=== PATIENT | female | born 1985 | race Caucasian/White ===

== ENCOUNTER → 2020-01-27 15:02 | Outpatient (CLI) | payer OTHER, SELFPAY ==
--- NOTE | ~2020-01-27 | XR_ITS ---
EXAMINATION: XR knee LT min 4V DATE: 01/27/2020 15:30 INDICATION: Left knee injury. TECHNIQUE: 4 views of left knee were obtained. COMPARISON: Left knee radiographs 10/18/2013 FINDINGS: Bone alignment is normal. No fracture. There is mild osteoarthritis of lateral compartment characterized by a tiny marginal osteophyte. There is a small left knee joint effusion. IMPRESSION: 1. Mild left knee osteoarthritis. 2. Small left knee joint effusion. Reviewed, dictated and finalized at location A.
== END ==
PROVIDERS: Visit Provider Physician Assistant
DX: S89.92XA Unspecified injury of left lower leg, initial encounter (principal); X58.XXXA Exposure to other specified factors, initial encounter; M17.12 Unilateral primary osteoarthritis, left knee; M25.462 Effusion, left knee
CPT/HCPCS: 73564

== ENCOUNTER → 2020-02-03 15:47 | Outpatient (CLI) | payer OTHER, SELFPAY ==
--- NOTE | ~2020-02-03 | MR_ITS ---
EXAMINATION: MR knee LT wo con DATE: 02/03/2020 16:18 INDICATION: Left knee pain post injury TECHNIQUE: Magnetic resonance imaging (MRI) of the left knee was performed without intravenous contra st. Sequences included coronal PD-weighted FSE, coronal PD-weighted FS FSE, sagittal T2-weighted FSE , sagittal PD-weighted FS FSE and axial PD weighted fat saturated FSE. COMPARISON: None. FINDINGS: Medial compartment: Duplex medial meniscal tear including a likely paired beak configuration tear plane at the posterior horn and a longitudinal oblique tear plane extending to the inferior articular surface at the periphe ral third of the medial meniscal body and posterior horn. Articular cartilage is normal. Lateral compartment: Lateral meniscus is normal. Articular cartilage is normal. Patellofemoral compartment: Articular cartilage is normal. Ligaments and tendons: Posterior cruciate ligament is normal. The anterior cruciate ligament is no longer visualized consist ent with interval tear which is likely chronic given the lack of significant edema or evident residua l ligament tissue. The medial collateral ligament and fibular collateral ligament complex are normal. The extensor mechanism is normal. The visualized medial and lateral hamstring tendons as well as the iliotibial band are normal. Fluid: Minimal left knee joint effusion at the suprapatellar pouch. No loose osteochondral bodies identified . Osseous/other: Normal marrow signal. No fracture or pathologic marrow replacing process. IMPRESSION: 1. Complete tear of the anterior cruciate ligament which is likely chronic given the lack of signific ant edema at the intercondylar notch or evident residual torn ligament tissue. 2. Complex medial meniscal tear. Reviewed, dictated and finalized at location A. LOPMENT REP IMPRESSION: 1. Complete tear of the anterior cruciate ligament which is likely chronic give n the lack of significant edema at the intercondylar notch or evident residual torn ligament tissue. 2. Complex medial meniscal tear.
== END ==
PROVIDERS: PCP Physician Assistant; Visit Provider Physician Assistant
DX: S83.512A Sprain of anterior cruciate ligament of left knee, initial encounter (principal); S83.232A Complex tear of medial meniscus, current injury, left knee, initial encounter
CPT/HCPCS: 73721

== ENCOUNTER 2020-09-17 14:38 | Emergency (ER) | payer OTHER, SELFPAY ==
--- NOTE | ~2020-09-17 | US_ITS ---
EXAMINATION: US OB <= 14 weeks fetus DATE: 09/17/2020 16:52 INDICATION: First trimester vaginal bleeding. TECHNIQUE: Real-time transabdominal and transvaginal pelvic ultrasound was performed. COMPARISON: None. FINDINGS: TRANSABDOMINAL ULTRASOUND: The uterus measures 8.7 x 6.0 x 6.3 cm. TRANSVAGINAL ULTRASOUND: There is a cyst in the endometrial complex with mean diameter of 2.3 cm that is likely a gestational sac. No yolk sac is identified. The crown rump length measures 5 mm, which correlates with an estimated gestational age of 6 weeks and 3 day(s) +/- 4 days. heart mo tion is not identified by M-mode Doppler. The right ovary measures 2.7 x 2.1 x 2.0 cm. The left ovary measures 2.4 x 1.6 x 1.3 cm. There is no free fluid in the pelvis. IMPRESSION: 1. Single intrauterine gestation with estimated date of delivery of 05/11/2021. Lack of demonstrable heart motion is not reassuring at this size but may rarely be normal. Serial beta-hCGs are adan mmended. Reviewed, dictated and finalized at location A. IMPRESSION: 1. Single intrauterine gestation with estimated date of delivery of 05/11/2021. Lack of demonstrable heart motion is not reassuring at this size but may rarely be normal. Serial beta-hCGs are recommended.
[2020-09-17 14:40] VITALS: BP 147/78; PULSE 114; RESP 20; TEMP 36.7; O2SAT 100
[2020-09-17 15:00] LABS: Basophils Absolute Auto 0.1 K/mm3 (0.0-0.1); Basophils Percent Auto 0.5 % (0.2-1.2); Eosinophils Absolute Auto 0.2 K/mm3 (0-0.3); Eosinophils Percent Auto 2.1 % (0-4.4); Hemoglobin 13.9 g/dL (12.0-15.0); Immature Granulocyte Absolute 0.03 K/mm3 (0.00-0.031); Immature Granulocyte Percent A 0.3 % (0-0.5); Lymphocytes Absolute Auto 3.24 K/mm3 (0.9-3.2); Lymphocytes Percent Auto 32.4 % (18.3-44.2); Mean Corpuscular HGB Conc 32.3 g/dl (32-36); Mean Corpuscular Hemoglobin 30.5 pg (26-34); Mean Corpuscular Volume 94.5 fl (80-100); Mean Platelet Volume 10.1 fl (7.4-10.4); Monocytes Absolute Auto 0.7 K/mm3 (0.1-0.6); Monocytes Percent Auto 6.9 % (2.6-8.5); Neutrophils Absolute Auto 5.8 K/mm3 (1.3-6.7); Neutrophils Percent Auto 57.8 % (45.5-73.1); Platelet Count Result 302 k/mm3 (150-375); Red Blood Count 4.55 M/mm3 (4.2-5.4); Red Cell Distribution Width 13.1 % (11.5-14.5)
--- NOTE | 2020-09-17 16:10 | ED.PREGNANCY ---
HPI - General Chief complaint: Vaginal Bleeding Stated complaint: 10 weeks preg, vag bleed Time Seen by Provider: 09/17/20 15:36 Source: patient Mode of arrival: ambulatory Limitations: no limitations History of Present Illness HPI Narrative: This is a 35-year-old , about 11 weeks by LMP that presents to the emergency department for vaginal bleeding. Reports 2 days ago she noted some very light spotting. Reports today after using the restroom she noted some bright red blood. She has not had ultrasound yet this . Her OB is Dr. Perez. Denies pelvic cramping. Related Data Allergies Allergy/AdvReac Type Severity Reaction Status Date / Time No Known Allergies Allergy Unverified 02/15/17 17:39 Review of Systems Review of Systems: Narrative: CONSTITUTIONAL: Denies fever GASTROINTESTINAL: Denies pelvic pain, nausea, vomiting All systems reviewed & are unremarkable except as noted in HPI and below PMFSH Past Medical History Medical History (Updated 09/17/20 @ 18:34 by Leticia Morelos PA-C) History of hypothyroidism Family History Family History (Updated 11/27/14 @ 10:23 by DOCTOR UNKNOWN) Other Acute myocardial infarction Diabetes mellitus Family history of alcoholism Social History Social History Smoking status: Never smoker Gender identity (if verbalized by the patient): Female Exam Narrative: Exam Narrative: GENERAL: Well-appearing, well-nourished, and in no acute distress. HEAD: Normocephalic, atraumatic. EYES: EOMI. CHEST: Clear to auscultation. No respiratory distress. No wheezes rales or rhonchi HEART: Regular rate and rhythm. No murmur heard. Normal peripheral pulses. ABDOMEN: Soft, nontender, nondistended, normal active bowel sounds. EXTREMITIES: Normal range of motion. No edema. SKIN: Warm, dry, no rash. NEURO: No focal deficits. Alert and oriented x3. PSYCH: Normal mood and affect PELVIC: Small amount of dark red blood in the vaginal vault, cervix closed Course Consultations Consultation #1: Spoke with Dr. Perez about patient and work-up. Would like patient to call tomorrow for follow-up appointment Date: 09/17/20 Time: 18:32 Vital Signs Vital signs: Vital Signs Temperature 98.0 F 09/17/20 14:40 Pulse Rate 114 H 09/17/20 14:40 Respiratory Rate 20 09/17/20 14:40 Blood Pressure 147/78 H 09/17/20 14:40 Pulse Oximetry 100 09/17/20 14:40 Temperature 98.0 F 09/17/20 14:40 Pulse Rate 114 H 09/17/20 14:40 Respiratory Rate 20 09/17/20 14:40 Blood Pressure 147/78 H 09/17/20 14:40 Pulse Oximetry 100 09/17/20 14:40 MDM - OB/Uterine Contractions MDM Narrative Medical decision making narrative: Patient presents to the emergency department for vaginal bleeding. 11 weeks by LMP. Her vitals are stable. Hemoglobin is 13.9. Small amount of bleeding noted on pelvic exam. Patient is B+. Her quantitative beta-hCG is 8525. Obstetrics ultrasound shows single intrauterine gestation. No heart motion is noted. Serial beta hCG recommended. Patient and family updated on case findings. Spoke with Dr. Perez about patient and work-up will follow-up in clinic. Patient is stable and felt appropriate for further outpatient evaluation. She was given warnings to return to the ER Lab Data Attestation: I reviewed the patient's lab results. Result diagrams: 09/17/20 14:46 Labs: Lab Results 09/17/20 09/17/20 09/17/20 Range/Units 14:46 14:46 14:46 WBC 10.0 (4.5-10.0) K/mm3 RBC 4.55 (4.2-5.4) M/mm3 Hgb 13.9 (12.0-15.0) g/dL Hct 43.0 (37.0-47.0) % MCV 94.5 (80-100) fl MCH 30.5 (26-34) pg MCHC 32.3 (32-36) g/dl RDW 13.1 (11.5-14.5) % Plt Count 302 (150-375) k/mm3 MPV 10.1 (7.4-10.4) fl Immature Gran % (Auto) 0.3 (0-0.5) % Neut % (Auto) 57.8 (45.5-73.1) % Lymph % (Auto) 32.4 (18.3-44.2) % Camp % (Auto) 6.9 (2.6-8.5) % Eos % (Auto) 2.1 (0-4.4) % Baso % (Auto) 0.5
== END 2020-09-17 18:43 | disposition home or self-care (01) ==
PROVIDERS: Emergency Medicine; Emergency Provider Emergency Medicine; PCP Physician Assistant
DX: O20.9 Hemorrhage in early pregnancy, unspecified (principal); O99.281 Endocrine, nutritional and metabolic diseases complicating pregnancy, first trimester; E03.9 Hypothyroidism, unspecified; Z3A.01 Less than 8 weeks gestation of pregnancy
CPT/HCPCS: 36415; 76801; 84702; 85025; 85461; 99284

== ENCOUNTER 2021-09-28 15:02 | Emergency (ER) | payer OTHER, SELFPAY ==
[2021-09-28 15:04] VITALS: BP 141/72; PULSE 103; RESP 18; TEMP 37.2; O2SAT 99
--- NOTE | 2021-09-28 15:24 | ED.FEVER ---
HPI - Fever General Chief Complaint: Fever Stated Complaint: covid positive Time Seen by Provider: 09/28/21 15:10 History of Present Illness HPI Narrative: pt here with having cough nasal congestion and home covid test positive today has all vaccines and booster but fever over 100 today no other vaginal bleeding, consistant abd pain, nv//d/urine chagnes but is urinating a lot thought just b/c preg. high risk due to age and previous miscarriage will be transgferred at 8-9weeks to [facility] for rest of . just seeing fertility docs in [place] currently Related Data Allergies Allergy/AdvReac Type Severity Reaction Status Date / Time No Known Allergies Allergy Unverified 02/15/17 17:39 Review of Systems Constitutional: Comments: CONSTITUTIONAL: Denies, chills, or sweats. has fever EYES: Denies visual changes, redness, or discharge. ENT: Denies rhinorrhea, sore throat, or otalgia. has nasal congestion CARDIOVASCULAR: Denies chest pain, palpitations, or edema. RESPIRATORY: Denies dyspnea. has cougn GASTROINTESTINAL: Denies abdominal pain, nausea, vomiting, or diarrhea. GENITOURINARY: Denies dysuria or hematuria. SKIN: Denies rash or itching. MUSCULOSKELETAL: Denies back pain, joint pain, or myalgia. NEUROLOGIC: Denies headache, numbness, or weakness. PSYCHIATRIC: Denies anxiety or depression. [facility] Past Medical History Medical History (Updated 09/28/21 @ 16:56 by Maru Blakely MD) History of hypothyroidism Family History Family History (Updated 11/27/14 @ 10:23 by DOCTOR UNKNOWN) Other Acute myocardial infarction Diabetes mellitus Family history of alcoholism Social History Social History Smoking status: Never smoker Gender identity (if verbalized by the patient): Female Exam Const: Other: APPEARANCE: Well appearing, no pain in distress, well-nourished. Head normocephalic atraumtaic. EYES: PERRLA/EOMI, conjunctivae very clear. NOSE: Normal no drainage EARS:TMS clear Brittney Carrillo, with good light reflex. THROAT: Pharynx clear, no exudate. NECK: Supple. No adenopathy, no masses. RESPIRATORY: Airway patent, repsirations nonlabored. Clear to auscultation bilaterally, no rales, rhonchi, wheezing. CARDIOVASCULAR: Regular rate and rhythm without murmurs rubs or gallops. ABDOMINAL: Soft, nontender, nondistended, no hepatosplenomegally MUSCULOSKELETAl: Moves all extremities. Strenght/ROM intact, No edema, No calf tenderness. NEURO: Alert. Cranial nerves II through XII intact. Good gait. Good coordination SKIN:: Warm, dry. Normal Color PSYCHIATRIC: Normal affect/mood, normal interaction with parents. Course Reevaluation(s) Reevaluation #1: explained given freq urination may just be preg but with fevers want to make sure not another source of infection and get an offical covid test pt fine with all of this then will call her ob for further care/meds given status no infusion availability here Consultations Consultation #1: calling Dr Michaela Johnson at 1604 Consultation #2: talked with Dr Danae Harper covering to Dr Johnson and says symptomatic treatment no iv infusion doens't really help except maybe new one but hasn't used also could do baby asa daily for placenta flow but have her check with her doc in [place] so pt updated on all of this and fine wiht this plan will d/c at 150 Vital Signs Vital signs: Vital Signs Temperature 37.2 C 09/28/21 15:04 Pulse Rate 103 H 09/28/21 15:04 Respiratory Rate 18 09/28/21 15:04 Blood Pressure 141/72 H 09/28/21 15:04 Pulse Oximetry 99 09/28/21 15:04 Oxygen Delivery Room Air 09/28/21 15:04 Temperature 37.2 C 09/28/21 15:04 Pulse Rate 103 H 09/28/21 15:04 Respiratory Rate 18 09/28/21 15:04 Blood Pressure 141/72 H 09/28/21 15:04 Pulse Oximetry 99 09/28/21 15:04 Oxygen Delivery Room Air 09/28/21 15:04 MDM - Fever Lab Data Labs: Lab Results 09/28/21 09/28/21 Range/Units 15:19 15:40 Urine Color
[2021-09-28 15:48] LABS: Appearance Urine Clear (Clear); Bilirubin Urine Negative (Negative); Blood Urine Negative (Negative); Color Urine Yellow (Yellow); Glucose Urine UA Negative (Negative); Ketones Urine Negative (Negative); Leukocyte Esterase Ur Trace LEU/UL (Negative); Nitrate Urine Negative (Negative); Protein Urine Negative (Negative); Specific Grav Ur 1.015 (1.001-1.035); pH Urine 8.5 (5.0-9.0)
[2021-09-28 15:59] LABS: Bacteria Urine Trace /hpf; RBC Urine 0-2 /hpf (0-2); Squamous Epithelial Cell Urine Few /hpf (Few)
[2021-09-28 16:00] LABS: Add Urine Microscopic? YES
[2021-09-28 16:01] LABS: Influenza A QL RT-PCR Negative (Negative); Influenza B QL RT-PCR Negative (Negative); SARS-CoV-2 RNA PCR Positive
== END 2021-09-28 17:04 | disposition home or self-care (01) ==
PROVIDERS: Emergency Provider Emergency Medicine; PCP Physician Assistant
DX: O98.511 Other viral diseases complicating pregnancy, first trimester (principal); U07.1 COVID-19; O09.521 Supervision of elderly multigravida, first trimester; O99.281 Endocrine, nutritional and metabolic diseases complicating pregnancy, first trimester; E03.9 Hypothyroidism, unspecified; Z3A.01 Less than 8 weeks gestation of pregnancy
CPT/HCPCS: 81001; 87502; 99283; C9803; U0003; U0005

== ENCOUNTER → 2023-02-11 12:10 | Outpatient (CLI) | payer OTHER, SELFPAY ==
--- NOTE | ~2023-02-11 | CT_ITS ---
Non-contrast CT scan of the Abdomen and Pelvis Clinical indication: Hematuria Technique: 2.5 mm axial scans were obtained through the abdomen and pelvis without intravenous or or al contrast. Dose reduction technique was used on this scan by utilizing automated exposure control a nd iterative reconstruction technique. The dose-length product (DLP) was 430.12 mGy-cm. Findings: Images through the lung bases reveal no abnormalities. There is no evidence of renal or ureteral calculi. The kidneys and the ureters are nondilated. The liver, spleen, pancreas, gallbladder, and adrenals appear normal. There is no aortic aneurysm. There is no evidence of bowel obstruction. Images through the pelvis were performed. There is no evidence of ascites or lymphadenopathy. No adne xal mass evident. No ascites. Urinary bladder unremarkable. Impression: No significant abnormality seen. No etiology for hematuria identified. Reviewed, dictated and finalized at [facility]. ET BRAIDER Impression: No significant abnormality seen. No etiology for hematuria identified.
== END ==
PROVIDERS: PCP Physician Assistant; Visit Provider Physician Assistant
DX: R31.9 Hematuria, unspecified (principal)
CPT/HCPCS: 74176

== ENCOUNTER 2023-02-14 16:13 | Emergency (ER) | payer OTHER, SELFPAY ==
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
[2023-02-14 16:22] VITALS: BP 122/94; PULSE 71; RESP 16; TEMP 36.5; O2SAT 100
== END 2023-02-14 16:40 | disposition home or self-care (01) ==
PROVIDERS: Emergency Provider Nurse Practitioner Family; PCP Physician Assistant
DX: Z04.1 Encounter for examination and observation following transport accident (principal); R51.9 Headache, unspecified; E03.9 Hypothyroidism, unspecified
CPT/HCPCS: 99212; 99213; G0463

== ENCOUNTER 2023-08-31 13:16 | Outpatient (CLI) | payer OTHER, SELFPAY ==
--- NOTE | ~2023-08-31 | US_ITS ---
Thyroid ultrasound. Clinical History: Hypothyroidism Findings: Real-time sonography of the thyroid gland was performed. The right lobe measures 4.3 x 0.9 x 1.0 cm. The left lobe measures 3.5 x 0.8 x 1.2 cm. The isthmus is 3 mm in AP diameter. No thyroid nodule or mass seen. Impression: Unremarkable exam. Reviewed, dictated and finalized at location . Impression: Unremarkable exam.
== END 2023-08-31 13:17 ==
LOC: GOSHIMG 13:18
PROVIDERS: PCP Physician Assistant; Visit Provider Physician Assistant
DX: E03.9 Hypothyroidism, unspecified (principal)
CPT/HCPCS: 76536

== ENCOUNTER 2024-04-25 15:46 | Outpatient (CLI) | payer OTHER, SELFPAY ==
--- NOTE | ~2024-04-25 | MR_ITS ---
EXAMINATION: MR knee LT wo con DATE: 04/25/2024 16:16 INDICATION: Rupture of the anterior cruciate ligament of the left knee TECHNIQUE: Magnetic resonance imaging (MRI) of the left knee was performed without intravenous contra st. Sequences included coronal PD-weighted FSE, coronal PD-weighted FS FSE, sagittal T2-weighted FSE , sagittal PD-weighted FS FSE and axial PD weighted fat saturated FSE. COMPARISON: None. FINDINGS: Medial compartment: Medial meniscus is normal. Articular cartilage is normal. Lateral compartment: Lateral meniscus is normal. Articular cartilage is normal. Patellofemoral compartment: Articular cartilage is normal. Ligaments and tendons: Complete tear of the anterior cruciate ligament. The medial collateral ligament and fibular collatera l ligament complex are normal. The extensor mechanism is normal. The visualized medial and lateral patterson mstring tendons as well as the iliotibial band are normal. Fluid: Physiologic amount of fluid in the joint space. No loose osteochondral bodies identified. Osseous/other: Normal marrow signal. No fracture or pathologic marrow replacing process. IMPRESSION: 1. Complete anterior cruciate ligament tear. 2. Remaining stabilizing ligaments of the knee sulci menisci and articular cartilage are normal. Reviewed, dictated and finalized at location B. CLEANER IMPRESSION: 1. Complete anterior cruciate ligament tear. 2. Remaining stabilizing ligaments of the knee sulci menisci and articular cart ilage are normal.
== END 2024-04-25 15:47 | disposition home or self-care (01) ==
PROVIDERS: PCP Physician Assistant; Visit Provider Physician Assistant
DX: S83.512A Sprain of anterior cruciate ligament of left knee, initial encounter (principal); S83.242A Other tear of medial meniscus, current injury, left knee, initial encounter; X58.XXXA Exposure to other specified factors, initial encounter
CPT/HCPCS: 73721

== ENCOUNTER 2025-02-05 17:01 | Emergency (ER) | payer OTHER, SELFPAY ==
--- NOTE | ~2025-02-05 | CT_ITS ---
EXAMINATION: CT brain wo con COMPARISON: None HISTORY: headache TECHNIQUE: Axial images were obtained through the brain without IV contrast. CT scan performed using dose optimization techniques including the following automated exposure control; adjustment of mA and/or kV; use of iterative reconstruction technique. Automatic exposure control was used to reduce radiation dose. Permanent radiation dose record is archived to PACS. FINDINGS: No acute infarct or parenchymal hemorrhage. No abnormal mass or mass effect. No midline shift. No extra-axial fluid collections. No hydrocephalus. . Mastoid air cells unremarkable. Severe right maxillary sinusitis, underlying polyp formation suspected No acute fracture. No significant facial or scalp soft tissue swelling evident. No radiopaque foreign body is seen. Impression: 1.No acute intracranial abnormality. Reviewed, dictated and finalized at location P. THERAPIST Impression: 1.No acute intracranial abnormality.
--- OUTSIDE RECORDS SUMMARY | 2025-02-05 16:30 | XMS_ITS | Encounter Summary ---
Author Organization [facility] Healthcare Address [address] [place] [address] Care Team Providers Care Pipeline Superintendent Division Name Role Phone Letty Garcia Primary [facility] Reason for Visit * Reason Comments Headache Continual headache f or the last 6 days.states that is mainly behind the L eye and eye brow, skin is sensitive to touch, No fever. Encounter Details Date Type Department Care Team (Latest Contact Info) Description 02/05/2025 4:30 PM BALLET MASTER/MISTRESS Office Visit [facility] at [address] [id number] Mica Chun NP [address] [place] [id number] Acute nonintractable headache, unspecified headache type (Primary Dx) Social History Tobacco Use Types Packs/Day Years Used Date Smoking Tobacco: Never Smokeless Tobacco: Never Alcohol Use Standard Drinks/Week Comments Never 0 (1 standard drink = 0.6 oz pur e alcohol) AUDIT-C Answer Date Recorded Q1: How often do you have a drink containing alcohol? Never 02/05/2025 Q2: How many drinks containi ng alcohol do you have on a typical day when you are drinking? Patient does not drink Q3: How often do you have si x or more drinks on one occasion? Never 02/05/2025 Comments Unknown Sex and Gender Information Value Date Recorded Sex Assigned at Not on file Legal Sex Female 12:38 AM BALLET MASTER/MISTRESS Gender Identity Female 09/27/2024 6:32 AM CDT Sexual Orientation Straight 09/27/2024 6: 32 AM CDT documented as of this encounter Last Filed Vital Signs Vital Sign Reading Time Taken Comments Blood Pressure 132/84 02/05/2025 4:26 PM BALLET MASTER/MISTRESS Pulse 88 02/05/2025 4:26 PM BALLET MASTER/MISTRESS Temperature 36.7 C (98 F) 02/05/2025 4:26 PM BALLET MASTER/MISTRESS Respiratory Rate - - Oxygen Saturation 100% 02/05/2025 4:26 PM BALLET MASTER/MISTRESS Inhaled Oxygen Concentration - - Weight 64.2 kg (141 lb 9.6 oz) 02/05/2025 4:26 P M BALLET MASTER/MISTRESS Height - - Body Mass Index 25.89 06/10/2024 3:02 PM CDT documented in this encounter Functional Status * BP Location Answer Date of Assessment Author Left arm 02/05/2025 4:26 PM Gene Siegel MA * AUDIT-C Score Answer Date of Assessment Author 0 02/05/2025 4:27 PM Gene Siegel MA * Alcohol Use Question Answer Date of Assessment Author Q1: How often do you have a drink containing alcohol? Never 02/05/2025 4:27 PM Leona Siegel MA Q2: How many drinks containing alcohol do you have on a typical day when you are drinking? Patient does not drink 02/05/2025 4:27 PM Leona Siegel MA Q3: How often do you have six or more drinks on one occasion? Never 02/05/2025 4:27 PM Leona Siegel MA * BP Location Answer Date of Assessment Author Left arm 02/05/2025 4:26 PM Gene Siegel MA documented as of this encounter Plan of Treatment Upcoming Encounters Date Type Department Care Team (Latest Contact Info) Description 02/09/2025 9:45 AM BALLET MASTER/MISTRESS Hospital Encounter [facility] Operating Room [address] [place] [address] Edward Doyle MD [address] [place] [address] [address] ACOSTA B [address] [address] 02/09/2025 9:45 AM BALLET MASTER/MISTRESS - 02/09/2025 12:15 PM BALLET MASTER/MISTRESS Surgery [facility] Operating Room [address] [place] [address] Edward Doyle MD [address] [place] [address] [address] ACOSTA B [address] [place] [address] Left knee arthroscopy, anterior cruciate ligament reconstruction--Art hroscopy equipment, Arthrex ACL tightrope, Arthrex extendo button back up, Arthrex records tech, meniscal repairs systems cart on hold, Arthrex graft board, c-arm, graftlink, Arthrex size 10 x 65-70, NMES and cooling unit Scheduled Procedures Name Priority Associated Diagnoses Date/Ti me ARTHROSCOPY KNEE - REPAIR/AUGMENTATION OR RECONSTRUCTION ANTERIOR CRUCIATE LIGAMENT Rupture of anterior cruciate ligament of left knee, initial encounter 02/09/2025 9:45 AM BALLET MASTER/MISTRESS documented as of this encounter Visit Diagnoses Diagnosis Left anterior cruciate ligament tear- Primary Acute nonintractable headache, unspecified headache type- Primary Rupture of anterior cruciate ligament of left knee, initial encounter documented in this encounter Care Teams Pipeline Superintendent Division Relationship Specialty Start Date End Date Letty Garcia PA PCP - General Physician E Commerce Analyst 05/22/23 documented as of this encounter
[2025-02-05 17:03] VITALS: BP 138/84; PULSE 90; RESP 18; TEMP 36.6; O2SAT 98
--- OUTSIDE RECORDS SUMMARY | 2025-02-05 17:03 | XMS_ITS | Data Portability ---
Author Organization [facility] FITZJewel Address [address] [facility] [place] [address] Care Team Providers Care Health And Wellness Coach Name Role Phone CIARA BURROUGHS Primary Care Provider Unavailab le Assessment No assessment recorded. Plan of Treatment Reminders Order Date Submit Date Provider Last Modified By Organization Details Last Modified Time Details Appointments ANY 2024 01:45P M ANGIE Madison Not available Not available Not available ANY 2025 03:15P Caryn Samuels MD Not available Not available Not available Lab lipid panel, serum 2023 024 [facility], [address], [address], 09/01/2023 18:36:19 vitamin B12 + folate, serum or blood 2023 024 [facility], 102 [facility] [address], [address], 09/01/2023 18:36:21 CBC w/ auto diff 2023 024 [facility], 102 [facility], [facility], [place], [address], 09/01/2023 18:36:22 CMP, serum or plasma 2023 024 [facility], 102 [facility], [facility], [place], [address], 09/01/2023 18:36:20 urinalysi s complete, reflex culture 2023 024 [facility], 102 [facility], [facility], [place], [address], 09/01/2023 18:36:21 HbA1c (hemoglob in A1c), blood 2023 024 [facility], 102 [facility], [facility], [place], [address], 09/01/2023 18:36:22 TSH + free T4, serum 2023 024 [facility], 102 [facility], [facility], [place], [address], 09/01/2023 18:36:19 T3, free, serum or plasma 2023 024 [facility], 102 [facility], [facility], [place], [address], 09/01/2023 18:36:24 thyroid peroxidas e (tpo) Ab, serum 2023 024 [facility], [address] [place] [address], [facility], [place], [address], 09/01/2023 18:36:23 thyroglob ulin Ab, serum 2023 024 [facility], [address] [place] [address], [facility] [address], [place], [address], 09/01/2023 18:36:24 Referral None recorded. Procedures None recorded. Surgeries None recorded. Imaging US, thyroid 2023 024 [facility], [address] [facility] [address], [place], [address], 09/24/2023 15:33:31 Medication Orders albuterol sulfate HFA 90 mcg/actua tion aerosol inhaler 2023 024 [facility] #[id number], [address] [facility], [place], [id number], 03/15/2024 14:16:41 benzonata te 200 mg capsule 2023 025 [facility] #[id number], [address] [place] [address], [id number], 08/06/2024 20:35:04 nystatin 100,000 unit/gram topical powder [address] [facility] #[id number], [address] [place] [address], [id number], 01/08/2024 13:57:33 fluticaso ne propionat e 50 mcg/actua tion nasal spray,becca pension 2023 024 [facility] #97802, [address] [place] [address], [id number], 07/23/2023 00:24:23 hydrocodo ne 10 mg-chlorp heniramin e 8 mg/5 mL oral susp extend.re l 12hr [address] [facility] #46878, [address] [place] [address], [id number], 01/08/2024 13:57:25 Zithromax Z-Luca 250 mg tablet [address] #[address]68, [address] [place] [address], [id number], 08/06/2024 20:34:55 Patient TargetsNo targets recorded. Patient Instructions Encounter Date Encounter Id Patient Instructions Last Modified By Organization Details Last Modified Time 01/08/2024 [id number] A healthy lifestyle: care instructions [email or web address] Not available 01/08/2024 16:30:15 Reason for Referral None Reported. Results Created Date Observation Date Name Description Value Unit Range Abnormal Flag Note LastModifiedBy Organization Detail LastModifiedTime 08/31/19 24 09/01/2023 LIPID PANEL W/ CHOL/ HDL RATIO cholesterol, total 157 mg/dL 100-19 9 Not Available [facility] ([facility]) [address] [place], [address], 09/01/2023 18:36:19 08/31/19 24 09/01/2023 LIPID PANEL W/ CHOL/ HDL RATIO triglyceride s 242 mg/dL 0-149 above high normal Not Available [facility] ([facility]) [address] [facility], [place], [address], 09/01/2023 18:36:19 08/31/19 24 09/01/2023 LIPID PANEL W/ CHOL/ HDL RATIO HDL cholesterol 36 mg/dL >39 below low normal Not Available [facility] ([facility]) [address] [facility], [place], [address], 09/01/2023 18:36:19 08/31/19 24 09/01/2023 LIPID PANEL W/ CHOL/ HDL RATIO VLDL cholesterol sonali 40 mg/dL 5-40 Not Available [facility] ([facility]) [address] [place], [address], 09/01/2023 18:36:19 08/31/19 24 09/01/2023 LIPID PANEL W/ CHOL/ HDL RATIO LDL chol calc ([facility]) 81 mg/dL 0-99 Not Available [facility] ([facility]) [address] [place], [address], 09/01/2023 18:36:19 08/31/19 24 09/01/2023 LIPID PANEL W/ CHOL/ HDL RATIO T. chol/HDL ratio 4.4 ratio 0.0-4. 4 T. Chol/ HDL Ratio Men Women 1/2 Avg.R isk 3.4 3.3 Avg.R isk 5.0 4.4 2X Avg.R isk 9.6 7.1 3X Avg.R isk 23.4 11.0 Not Available [facility] ([facility]) [address] [facility] [place], [address], 09/01/2023 18:36:19 08/31/19 24 09/01/2023 TSH+F REE T4 TSH 0.060 uIU/m L 0.450- 4.500 below low normal Not Available [facility] ([facility]) [address] [facility] [place], [address], 09/01/2023 18:36:19 08/31/19 24 09/01/2023 TSH+F REE T4 T4,free(dire ct) 1.59 NG/dL 0.82-1 .77 Not Available [facility] ([facility]) [address] [facility] [place], [address], 09/01/2023 18:36:19 08/31/19 24 09/01/2023 COMP. METAB OLIC PANEL (14) glucose 85 mg/dL 70-99 Not Available [facility] ([facility]) [address] [place], [address], 09/01/2023 18:36:20 08/31/19 24 09/01/2023 COMP. METAB OLIC PANEL (14) BUN 16 mg/dL 6-24 Not Available [facility] ([facility]) [address] [place], [address], 09/01/2023 18:36:20 08/31/19 24 09/01/2023 COMP. METAB OLIC PANEL (14) creatinine 0.70 mg/dL 0.57-1 .00 Not Available [facility] ([facility]) [address] [facility] [place], [address], 09/01/2023 18:36:20 08/31/19 24 09/01/2023 COMP. METAB OLIC PANEL (14) eGFR 112 mL/mi n/1.7 3 >59 Not Available [facility] ([facility]) [address] [place], [address], 09/01/2023 18:36:20 08/31/19 24 09/01/2023 COMP. METAB OLIC PANEL (14) BUN/creatini ne ratio 23 9-23 Not Available [facility] ([facility]) [address] [facility], [place], [address], 09/01/2023 18:36:20 08/31/19 24 09/01/2023 COMP. METAB OLIC PANEL (14) sodium 142 mmol/ L 134-14 4 Not Available [facility] ([facility]) [address] [facility], [place], [address], 09/01/2023 18:36:20 08/31/19 24 09/01/2023 COMP. METAB OLIC PANEL (14) potassium 4.4 mmol/ L 3.5-5. 2 Not Available [facility] ([facility]) [address] [facility], [place], [address], 09/01/2023 18:36:20 08/31/19 24 09/01/2023 COMP. METAB OLIC PANEL (14) chloride 106 mmol/ L 96-106 Not Available [facility] ([facility]) [address] [place], [address], 09/01/2023 18:36:20 08/31/19 24 09/01/2023 COMP. METAB OLIC PANEL (14) carbon dioxide, total 22 mmol/ L 20-29 Not Available [facility] ([facility]) [address] [place], [address], 09/01/2023 18:36:20 08/31/19 24 09/01/2023 COMP. METAB OLIC PANEL (14) calcium 9.3 mg/dL 8.7-10 .2 Not Available [facility] ([facility]) [address] [place], [address], 09/01/2023 18:36:20 08/31/19 24 09/01/2023 COMP. METAB OLIC PANEL (14) protein, total 6.8 g/dL 6.0-8. 5 Not Available [facility] ([facility]) [address] [facility], [place], [address], 09/01/2023 18:36:20 08/31/19 24 09/01/2023 COMP. METAB OLIC PANEL (14) albumin 4.3 g/dL 3.9-4. 9 Not Available [facility] ([facility]) [address] [facility], [place], [address], 09/01/2023 18:36:20 08/31/19 24 09/01/2023 COMP. METAB OLIC PANEL (14) globulin, total 2.5 g/dL 1.5-4. 5 Not Available [facility] ([facility]) [address] [facility], [place], [address], 09/01/2023 18:36:20 08/31/19 24 09/01/2023 COMP. METAB OLIC PANEL (14) A/G ratio 1.7 1.2-2. 2 Not Available [facility] ([facility]) [address] [place], [address], 09/01/2023 18:36:20 08/31/19 24 09/01/2023 COMP. METAB OLIC PANEL (14) bilirubin, total <0.2 mg/dL 0.0-1. 2 Not Available [facility] ([facility]) [address] [place], [address], 09/01/2023 18:36:20 08/31/19 24 09/01/2023 COMP. METAB OLIC PANEL (14) alkaline phosphatase 78 IU/L 44-121 Not Available [facility] ([facility]) [address] [facility], [place], [address], 09/01/2023 18:36:20 08/31/19 24 09/01/2023 COMP. METAB OLIC PANEL (14) AST (SGOT) 28 IU/L 0-40 Not Available [facility] ([facility]) [address] [facility], [place], [address], 09/01/2023 18:36:20 08/31/19 24 09/01/2023 COMP. METAB OLIC PANEL (14) ALT (SGPT) 31 IU/L 0-32 Not Available [facility] ([facility]) [address] [facility], [place], [address], 09/01/2023 18:36:20 08/31/19 24 09/01/2023 UA WITH CULTU RE REFLE X specific gravity >=1.03 0 1.005- 1.030 abnormal Not Available [facility] ([facility]) [address] [facility], [place], [address], 09/01/2023 18:36:20 08/31/19 24 09/01/2023 UA WITH CULTU RE REFLE X pH 5.5 5.0-7. 5 Not Available [facility] ([facility]) [address] [facility], [place], [address], 09/01/2023 18:36:20 08/31/19 24 09/01/2023 UA WITH CULTU RE REFLE X urine-color Yellow yellow Not Available [facility] ([facility]) [address] [facility], [place], [address], 09/01/2023 18:36:20 08/31/19 24 09/01/2023 UA WITH CULTU RE REFLE X appearance Clear clear Not Available [facility] ([facility]) [address] [facility], [place], [address], 09/01/2023 18:36:20 08/31/19 24 09/01/2023 UA WITH CULTU RE REFLE X WBC esterase Negati ve negati ve Not Available [facility] ([facility]) [address] [facility], [place], [address], 09/01/2023 18:36:20 06/03/20 24 09/01/2023 UA WITH CULTU RE REFLE X protein Negati ve negati ve/tra ce Not Available [facility] ([facility]) [address] [facility], [place], [address], 09/01/2023 18:36:20 08/31/19 24 09/01/2023 UA WITH CULTU RE REFLE X glucose Negati ve negati ve Not Available [facility] ([facility]) [address] [facility], [place], [address], 09/01/2023 18:36:20 08/31/19 24 09/01/2023 UA WITH CULTU RE REFLE X ketones Negati ve negati ve Not Available [facility] ([facility]) [address] [facility], [place], [address], 09/01/2023 18:36:20 08/31/19 24 09/01/2023 UA WITH CULTU RE REFLE X occult blood Negati ve negati ve Not Available [facility] ([facility]) [address] [facility], [place], [address], 09/01/2023 18:36:20 08/31/19 24 09/01/2023 UA WITH CULTU RE REFLE X bilirubin Negati ve negati ve Not Available [facility] ([facility]) [address] [facility], [place], [address], 09/01/2023 18:36:20 08/31/19 24 09/01/2023 UA WITH CULTU RE REFLE X urobilinogen ,semi-qn 0.2 mg/dL 0.2-1. 0 Not Available [facility] ([facility]) [address] [facility], [place], [address], 09/01/2023 18:36:20 08/31/19 24 09/01/2023 UA WITH CULTU RE REFLE X nitrite, urine Negati ve negati ve Not Available [facility] ([facility]) [address] [facility], [place], [address], 09/01/2023 18:36:20 08/31/19 24 09/01/2023 UA WITH CULTU RE REFLE X microscopic examination Commen t Micro scopi c not indic ated and not perfo rmed. Not Available [facility] ([facility]) [address] [facility], [place], [address], 09/01/2023 18:36:20 08/31/19 24 09/01/2023 UA WITH CULTU RE REFLE X urinalysis reflex Commen t This speci men will not refle x to a Urine Cultu re. Not Available [facility] ([facility]) [address] [facility], [place], [address], 09/01/2023 18:36:20 08/31/19 24 09/01/2023 VITAM IN B12 AND FOLAT E vitamin B12 284 pg/mL 232-12 45 Not Available [facility] ([facility]) [address] [facility], [place], [address], 09/01/2023 18:36:21 08/31/19 24 09/01/2023 VITAM IN B12 AND FOLAT E folate (folic acid), serum 8.5 NG/mL >3.0 A serum folat e cris ntrat ion of less than 3.1 ng/mL is consi dered to repre sent clini sonali defic iency . Not Available [facility] ([facility]) [address] [facility], [place], [address], 09/01/2023 18:36:21 08/31/19 24 09/01/2023 HEMOG LOBIN A1C hemoglobin A1C 5.7 % 4.8-5. 6 above high normal Predi abete s: 5.7 - 6.4 Diabe milvia: >6.4 Glyce liss contr ol for adult s with diabe milvia: <7.0 Not Available [facility] ([facility]) [address] [facility], [place], [address], 09/01/2023 18:36:22 08/31/19 24 09/01/2023 CBC WITH DIFFE RENTI AL/PL ATELE T WBC 10.4 x10e3 /uL 3.4-10 .8 Not Available [facility] ([facility]) [address] [facility], [place], [address], 09/01/2023 18:36:22 08/31/19 24 09/01/2023 CBC WITH DIFFE RENTI AL/PL ATELE T RBC 4.63 x10e6 /uL 3.77-5 .28 Not Available [facility] ([facility]) [address] [facility], [place], [address], 09/01/2023 18:36:22 08/31/19 24 09/01/2023 CBC WITH DIFFE RENTI AL/PL ATELE T hemoglobin 13.5 g/dL 11.1-1 5.9 Not Available [facility] ([facility]) [address] [facility], [place], [address], 09/01/2023 18:36:22 08/31/19 24 09/01/2023 CBC WITH DIFFE RENTI AL/PL ATELE T hematocrit 40.0 % 34.0-4 6.6 Not Available [facility] ([facility]) [address] [facility], [place], [address], 09/01/2023 18:36:22 08/31/19 24 09/01/2023 CBC WITH DIFFE RENTI AL/PL ATELE T MCV 86 fL 79-97 Not Available [facility] ([facility]) [address] [place], [address], 09/01/2023 18:36:22 08/31/19 24 09/01/2023 CBC WITH DIFFE RENTI AL/PL ATELE T MCH 29.2 pg 26.6-3 3.0 Not Available [facility] ([facility]) [address] [place], [address], 09/01/2023 18:36:22 08/31/19 24 09/01/2023 CBC WITH DIFFE RENTI AL/PL ATELE T MCHC 33.8 g/dL 31.5-3 5.7 Not Available [facility] ([facility]) [address] [facility], [place], [address], 09/01/2023 18:36:22 08/31/19 24 09/01/2023 CBC WITH DIFFE RENTI AL/PL ATELE T RDW 13.5 % 11.7-1 5.4 Not Available [facility] ([facility]) [address] [facility], [place], [address], 09/01/2023 18:36:22 08/31/19 24 09/01/2023 CBC WITH DIFFE RENTI AL/PL ATELE T platelets 311 x10e3 /uL 150-45 0 Not Available [facility] ([facility]) [address] [facility], [place], [address], 09/01/2023 18:36:22 08/31/19 24 09/01/2023 CBC WITH DIFFE RENTI AL/PL ATELE T neutrophils 60 % notest ab. Not Available [facility] ([facility]) [address] [facility], [place], [address], 09/01/2023 18:36:22 08/31/19 24 09/01/2023 CBC WITH DIFFE RENTI AL/PL ATELE T lymphs 31 % notest ab. Not Available [facility] ([facility]) [address] [facility], [place], [address], 09/01/2023 18:36:22 08/31/19 24 09/01/2023 CBC WITH DIFFE RENTI AL/PL ATELE T monocytes 6 % notest ab. Not Available [facility] ([facility]) [address] [place], [address], 09/01/2023 18:36:22 08/31/19 24 09/01/2023 CBC WITH DIFFE RENTI AL/PL ATELE T eos 2 % notest ab. Not Available [facility] ([facility]) [address] [place], [address], 09/01/2023 18:36:22 08/31/19 24 09/01/2023 CBC WITH DIFFE RENTI AL/PL ATELE T basos 0 % notest ab. Not Available [facility] ([facility]) [address] [place], [address], 09/01/2023 18:36:22 08/31/19 24 09/01/2023 CBC WITH DIFFE RENTI AL/PL ATELE T neutrophils (absolute) 6.4 x10e3 /uL 1.4-7. 0 Not Available [facility] ([facility]) [address] [place], [address], 09/01/2023 18:36:22 08/31/19 24 09/01/2023 CBC WITH DIFFE RENTI AL/PL ATELE T lymphs (absolute) 3.2 x10e3 /uL 0.7-3. 1 above high normal Not Available [facility] ([facility]) [address] [place], [address], 09/01/2023 18:36:22 08/31/19 24 09/01/2023 CBC WITH DIFFE RENTI AL/PL ATELE T monocytes(ab solute) 0.6 x10e3 /uL 0.1-0. 9 Not Available [facility] ([facility]) [address] [place], [address], 09/01/2023 18:36:22 08/31/19 24 09/01/2023 CBC WITH DIFFE RENTI AL/PL ATELE T eos (absolute) 0.2 x10e3 /uL 0.0-0. 4 Not Available [facility] ([facility]) [address] [place], [address], 09/01/2023 18:36:22 08/31/19 24 09/01/2023 CBC WITH DIFFE RENTI AL/PL ATELE T baso (absolute) 0.0 x10e3 /uL 0.0-0. 2 Not Available [facility] ([facility]) [address] [place], [address], 09/01/2023 18:36:22 08/31/19 24 09/01/2023 CBC WITH DIFFE RENTI AL/PL ATELE T immature granulocytes 1 % notest ab. Not Available [facility] ([facility]) [address] [place], [address], 09/01/2023 18:36:22 08/31/19 24 09/01/2023 CBC WITH DIFFE RENTI AL/PL ATELE T immature grans (abs) 0.1 x10e3 /uL 0.0-0. 1 Not Available [facility] ([facility]) [address] [facility], [place], [address], 09/01/2023 18:36:22 08/31/19 24 09/01/2023 THYRO ID PEROX IDASE (TPO) AB thyroid peroxidase (tpo) Ab 18 IU/mL 0-34 Not Available [facility] ([facility]) [address] [place], [address], 09/01/2023 18:36:23 08/31/19 24 09/01/2023 THYRO GLOBU NIKOLAS ANTIB BERTRAND thyroglobuli n antibody <1.0 IU/mL 0.0-0. 9 Thyro globu nikolas Antib bertrand measu red by Rashi Aparicio er Metho dolog y It shoul d be noted that the prese nce of thyro globu nikolas antib odies may not be patho genic nor diagn ostic , espec ially at very low level s. The assay joyce actur er has found that four perce nt of indiv idual s witho ut evide nce of thyro id disea se or autoi mmuni ty will have posit gloria TgAb level s up to 4 IU/mL . Not Available [facility] ([facility]) [address] [place], [address], 09/01/2023 18:36:23 08/31/19 24 09/01/2023 TRIIO DOTHY SANDER E (T3), FREE triiodothyro nine (T3), free 3.6 pg/mL 2.0-4. 4 Not Available [facility] ([facility]) [address] [place], [address], 09/01/2023 18:36:24 09/15/19 25 09/15/2024 LIPID PANEL W/ CHOL/ HDL RATIO cholesterol, total 168 mg/dL 100-19 9 Not Available [facility] ([facility]) [address] [place], [address], 09/18/2024 13:07:05 09/15/19 25 09/15/2024 LIPID PANEL W/ CHOL/ HDL RATIO triglyceride s 198 mg/dL 0-149 above high normal Not Available [facility] ([facility]) [address] [place], [address], 09/18/2024 13:07:05 09/15/19 25 09/15/2024 LIPID PANEL W/ CHOL/ HDL RATIO HDL cholesterol 37 mg/dL >39 below low normal Not Available [facility] ([facility]) [address] [place], [address], 09/18/2024 13:07:05 09/15/19 25 09/15/2024 LIPID PANEL W/ CHOL/ HDL RATIO VLDL cholesterol sonali 34 mg/dL 5-40 Not Available [facility] ([facility]) [address] [place], [address], 09/18/2024 13:07:05 09/15/19 25 09/15/2024 LIPID PANEL W/ CHOL/ HDL RATIO LDL chol calc ([facility]) 97 mg/dL 0-99 Not Available [facility] ([facility]) [address] [facility], [place], [address], 09/18/2024 13:07:05 09/15/19 25 09/15/2024 LIPID PANEL W/ CHOL/ HDL RATIO T. chol/HDL ratio 4.5 ratio 0.0-4. 4 above high normal T. Chol/ HDL Ratio Men Women 1/2 Avg.R isk 3.4 3.3 Avg.R isk 5.0 4.4 2X Avg.R isk 9.6 7.1 3X Avg.R isk 23.4 11.0 Not Available [facility] ([facility]) [address] [facility], [place], [address], 09/18/2024 13:07:05 09/15/19 25 09/15/2024 TSH+F REE T4 TSH 0.715 uIU/m L 0.450- 4.500 Not Available [facility] ([facility]) [address] [place], [address], 09/18/2024 13:07:06 09/15/19 25 09/15/2024 TSH+F REE T4 T4,free(dire ct) 1.62 NG/dL 0.82-1 .77 Not Available [facility] ([facility]) [address] [place], [address], 09/18/2024 13:07:06 09/15/19 25 09/15/2024 MICRO SCOPI C EXAMI NATIO N WBC 0-5 /hpf 0-5 Not Available [facility] ([facility]) [address] [place], [address], 09/18/2024 13:07:07 09/15/19 25 09/15/2024 MICRO SCOPI C EXAMI NATIO N RBC NONE SEEN /hpf 0-2 Not Available [facility] ([facility]) [address] [place], [address], 09/18/2024 13:07:07 09/15/19 25 09/15/2024 MICRO SCOPI C EXAMI NATIO N epithelial cells (non renal) 0-10 /hpf 0-10 Not Available [facility] ([facility]) [address] [facility], [place], [address], 09/18/2024 13:07:07 09/15/19 25 09/15/2024 MICRO SCOPI C EXAMI NATIO N casts NONE SEEN /lpf nonese en Not Available [facility] ([facility]) [address] [facility], [place], [address], 09/18/2024 13:07:07 09/15/19 25 09/15/2024 MICRO SCOPI C EXAMI NATIO N bacteria FEW nonese en/few Not Available [facility] ([facility]) [address] [facility], [place], [address], 09/18/2024 13:07:07 09/15/19 25 09/15/2024 CMP14 +EGFR glucose 87 mg/dL 70-99 Not Available [facility] ([facility]) [address] [facility], [place], [address], 09/18/2024 13:07:07 09/15/19 25 09/15/2024 CMP14 +EGFR BUN 18 mg/dL 6-24 Not Available [facility] ([facility]) [address] [facility], [place], [address], 09/18/2024 13:07:07 09/15/19 25 09/15/2024 CMP14 +EGFR creatinine 0.71 mg/dL 0.57-1 .00 Not Available [facility] ([facility]) [address] [place], [address], 09/18/2024 13:07:07 09/15/19 25 09/15/2024 CMP14 +EGFR eGFR 109 mL/mi n/1.7 3 >59 Not Available [facility] ([facility]) [address] [place], [address], 09/18/2024 13:07:07 09/15/19 25 09/15/2024 CMP14 +EGFR BUN/creatini ne ratio 25 9-23 above high normal Not Available [facility] ([facility]) [address] [facility], [place], [address], 09/18/2024 13:07:07 09/15/19 25 09/15/2024 CMP14 +EGFR sodium 138 mmol/ L 134-14 4 Not Available [facility] ([facility]) [address] [place], [address], 09/18/2024 13:07:07 09/15/19 25 09/15/2024 CMP14 +EGFR potassium 4.7 mmol/ L 3.5-5. 2 Not Available [facility] ([facility]) [address] [place], [address], 09/18/2024 13:07:07 09/15/19 25 09/15/2024 CMP14 +EGFR chloride 103 mmol/ L 96-106 Not Available [facility] ([facility]) [address] [place], [address], 09/18/2024 13:07:07 09/15/19 25 09/15/2024 CMP14 +EGFR carbon dioxide, total 18 mmol/ L 20-29 below low normal Not Available [facility] ([facility]) [address] [place], [address], 09/18/2024 13:07:07 09/15/19 25 09/15/2024 CMP14 +EGFR calcium 9.5 mg/dL 8.7-10 .2 Not Available [facility] ([facility]) [address] [place], [address], 09/18/2024 13:07:07 09/15/19 25 09/15/2024 CMP14 +EGFR protein, total 7.3 g/dL 6.0-8. 5 Not Available [facility] ([facility]) [address] [facility] [place], [address], 09/18/2024 13:07:07 09/15/19 25 09/15/2024 CMP14 +EGFR albumin 4.5 g/dL 3.9-4. 9 Not Available [facility] ([facility]) [address] [facility] [place], [id number], 09/18/2024 13:07:07 09/15/19 25 09/15/2024 CMP14 +EGFR globulin, total 2.8 g/dL 1.5-4. 5 Not Available [facility] ([facility]) [address] [facility] [place], [address], 09/18/2024 13:07:07 09/15/19 25 09/15/2024 CMP14 +EGFR bilirubin, total 0.2 mg/dL 0.0-1. 2 Not Available [facility] ([facility]) [address] [facility] [place], [address], 09/18/2024 13:07:07 09/15/19 25 09/15/2024 CMP14 +EGFR alkaline phosphatase 76 IU/L 44-121 Not Available [facility] ([facility]) [address] [facility] [place], [address], 09/18/2024 13:07:07 09/15/19 25 09/15/2024 CMP14 +EGFR AST (SGOT) 18 IU/L 0-40 Not Available [facility] ([facility]) [address] [facility] [place], [address], 09/18/2024 13:07:07 09/15/19 25 09/15/2024 CMP14 +EGFR ALT (SGPT) 20 IU/L 0-32 Not Available [facility] ([facility]) [address] [facility] [place], [address], 09/18/2024 13:07:07 09/15/19 25 09/16/2024 HOMOC Y+MET HYL homocyst(E)i ne 11.7 umol/ L 0.0-14 .5 Not Available [facility] ([facility]) [address] [facility] [place], [address], 09/18/2024 13:07:08 09/15/19 25 09/18/2024 HOMOC Y+MET HYL methylmaloni c acid, serum 308 nmol/ L 0-378 Not Available [facility] ([facility]) [address] [facility] [place], [address], 09/18/2024 13:07:08 09/15/19 25 09/15/2024 VITAM IN B12+F OLATE vitamin B12 276 pg/mL 232-12 45 Not Available [facility] ([facility]) [address] [place], [address], 09/18/2024 13:07:09 09/15/19 25 09/15/2024 VITAM IN B12+F OLATE folate (folic acid), serum 8.1 NG/mL >3.0 A serum folat e cris ntrat ion of less than 3.1 ng/mL is consi dered to repre sent clini sonali defic iency . Not Available [facility] ([facility]) [address] [place], [address], 09/18/2024 13:07:09 09/15/1909/15/2024 UA/M W/RFL X CULTU RE, ROUTI NE specific gravity 1.020 1.005- 1.030 Not Available [facility] ([facility]) [address] [place], [address], 09/18/2024 13:07:09 09/15/19 25 09/15/2024 UA/M W/RFL X CULTU RE, ROUTI NE pH 6.5 5.0-7. 5 Not Available [facility] ([facility]) [address] [facility] [place], [address], 09/18/2024 13:07:09 09/15/19 25 09/15/2024 UA/M W/RFL X CULTU RESVETA NE urine-color YELLOW yellow Not Available [facility] ([facility]) [address] [facility], [place], [address], 09/18/2024 13:07:09 09/15/19 25 09/15/2024 UA/M W/RFL X CULTU RESVETA NE appearance CLEAR clear Not Available [facility] ([facility]) [address] [facility], [place], [address], 09/18/2024 13:07:09 09/15/19 25 09/15/2024 UA/M W/RFL X CULTU RE ROUTOscar NE WBC esterase TRACE negati ve abnormal Not Available [facility] ([facility]) [address] [facility], [place], [address], 09/18/2024 13:07:09 09/15/19 25 09/15/2024 UA/M W/RFL X CULTSrini RESVETA protein NEGATI VE negati ve/tra ce Not Available [facility] ([facility]) [address] [facility], [place], [address], 09/18/2024 13:07:09 09/15/19 25 09/15/2024 UA/M W/RFL X CULTSrini RESVETA NE glucose NEGATI VE negati ve Not Available [facility] ([facility]) [address] [facility], [place], [address], 09/18/2024 13:07:09 09/15/19 25 09/15/2024 UA/M W/RFL X CULTU RE ROUTI NE ketones NEGATI VE negati ve Not Available [facility] ([facility]) [address] [facility], [place], [address], 09/18/2024 13:07:09 09/15/19 25 09/15/2024 UA/M W/RFL X CULTU RE, ROUTI NE occult blood NEGATI VE negati ve Not Available [facility] ([facility]) [address] [place], [address], 09/18/2024 13:07:09 09/15/19 25 09/15/2024 UA/M W/RFL X CULTU RE, ROUTI NE bilirubin NEGATI VE negati ve Not Available [facility] ([facility]) [address] [place], [address], 09/18/2024 13:07:09 09/15/19 25 09/15/2024 UA/M W/RFL X CULTU RE, ROUTI NE urobilinogen ,semi-qn 0.2 mg/dL 0.2-1. 0 Not Available [facility] ([facility]) [address] [place], [address], 09/18/2024 13:07:09 09/15/19 25 09/15/2024 UA/M W/RFL X CULTU RE, ROUTI NE nitrite, urine NEGATI VE negati ve Not Available [facility] ([facility]) [address] [place], [address], 09/18/2024 13:07:09 09/15/19 25 09/15/2024 UA/M W/RFL X CULTU RE, ROUTI NE microscopic examination SEE BELOW: Micro scopi c was indic ated and was perfo rmed. Not Available [facility] ([facility]) [address] [place], [address], 09/18/2024 13:07:09 09/15/19 25 09/15/2024 UA/M W/RFL X CULTU RE, ROUTI NE urinalysis reflex COMMEN T This speci men has refle xed to a Urine Cultu re. Not Available [facility] ([facility]) [address] [place], [address], 09/18/2024 13:07:09 09/15/19 25 09/15/2024 HEMOG LOBIN A1C hemoglobin A1C 5.6 % 4.8-5. 6 Predi abete s: 5.7 - 6.4 Diabe milvia: >6.4 Glyce liss contr ol for adult s with diabe milvia: <7.0 Not Available [facility] ([facility]) [address] [facility], [place], [address], 09/18/2024 13:07:10 09/15/19 25 09/15/2024 CBC WITH DIFFE RENTI AL/PL ATELE T WBC 8.6 x10e3 /uL 3.4-10 .8 Not Available [facility] ([facility]) [address] [facility], [place], [address], 09/18/2024 13:07:11 09/15/19 25 09/15/2024 CBC WITH DIFFE RENTI AL/PL ATELE T RBC 4.77 x10e6 /uL 3.77-5 .28 Not Available [facility] ([facility]) [address] [facility], [place], [address], 09/18/2024 13:07:11 09/15/19 25 09/15/2024 CBC WITH DIFFE RENTI AL/PL ATELE T hemoglobin 14.1 g/dL 11.1-1 5.9 Not Available [facility] ([facility]) [address] [facility], [place], [address], 09/18/2024 13:07:11 09/15/19 25 09/15/2024 CBC WITH DIFFE RENTI AL/PL ATELE T hematocrit 43.7 % 34.0-4 6.6 Not Available [facility] ([facility]) [address] [facility], [place], [address], 09/18/2024 13:07:11 09/15/19 25 09/15/2024 CBC WITH DIFFE RENTI AL/PL ATELE T MCV 92 fL 79-97 Not Available [facility] ([facility]) [address] [facility], [place], [address], 09/18/2024 13:07:11 09/15/19 25 09/15/2024 CBC WITH DIFFE RENTI AL/PL ATELE T MCH 29.6 pg 26.6-3 3.0 Not Available [facility] ([facility]) [address] [facility], [place], [address], 09/18/2024 13:07:11 09/15/19 25 09/15/2024 CBC WITH DIFFE RENTI AL/PL ATELE T MCHC 32.3 g/dL 31.5-3 5.7 Not Available [facility] ([facility]) [address] [facility], [place], [address], 09/18/2024 13:07:11 09/15/19 25 09/15/2024 CBC WITH DIFFE RENTI AL/PL ATELE T RDW 12.9 % 11.7-1 5.4 Not Available [facility] ([facility]) [address] [place], [address], 09/18/2024 13:07:11 09/15/19 25 09/15/2024 CBC WITH DIFFE RENTI AL/PL ATELE T platelets 333 x10e3 /uL 150-45 0 Not Available [facility] ([facility]) [address] [facility], [place], [address], 09/18/2024 13:07:11 09/15/19 25 09/15/2024 CBC WITH DIFFE RENTI AL/PL ATELE T neutrophils 56 % notest ab. Not Available [facility] ([facility]) [address] [place], [address], 09/18/2024 13:07:11 09/15/19 25 09/15/2024 CBC WITH DIFFE RENTI AL/PL ATELE T lymphs 36 % notest ab. Not Available [facility] ([facility]) [address] [facility], [place], [address], 09/18/2024 13:07:11 09/15/19 25 09/15/2024 CBC WITH DIFFE RENTI AL/PL ATELE T monocytes 6 % notest ab. Not Available [facility] ([facility]) [address] [facility], [place], [address], 09/18/2024 13:07:11 09/15/19 25 09/15/2024 CBC WITH DIFFE RENTI AL/PL ATELE T eos 1 % notest ab. Not Available [facility] ([facility]) [address] [facility], [place], [address], 09/18/2024 13:07:11 09/15/19 25 09/15/2024 CBC WITH DIFFE RENTI AL/PL ATELE T basos 1 % notest ab. Not Available [facility] ([facility]) [address] [facility], [place], [address], 09/18/2024 13:07:11 09/15/19 25 09/15/2024 CBC WITH DIFFE RENTI AL/PL ATELE T neutrophils (absolute) 4.9 x10e3 /uL 1.4-7. 0 Not Available [facility] ([facility]) [address] [facility], [place], [address], 09/18/2024 13:07:11 09/15/19 25 09/15/2024 CBC WITH DIFFE RENTI AL/PL ATELE T lymphs (absolute) 3.1 x10e3 /uL 0.7-3. 1 Not Available [facility] ([facility]) [address] [facility], [place], [address], 09/18/2024 13:07:11 09/15/19 25 09/15/2024 CBC WITH DIFFE RENTI AL/PL ATELE T monocytes(ab solute) 0.5 x10e3 /uL 0.1-0. 9 Not Available [facility] ([facility]) [address] [facility], [place], [address], 09/18/2024 13:07:11 09/15/19 25 09/15/2024 CBC WITH DIFFE RENTI AL/PL ATELE T eos (absolute) 0.1 x10e3 /uL 0.0-0. 4 Not Available [facility] ([facility]) [address] [place], [address], 09/18/2024 13:07:11 09/15/19 25 09/15/2024 CBC WITH DIFFE RENTI AL/PL ATELE T baso (absolute) 0.0 x10e3 /uL 0.0-0. 2 Not Available [facility] ([facility]) [address] [facility], [place], [address], 09/18/2024 13:07:11 09/15/19 25 09/15/2024 CBC WITH DIFFE RENTI AL/PL ATELE T immature granulocytes 0 % notest ab. Not Available [facility] ([facility]) [address] [place], [address], 09/18/2024 13:07:11 09/15/19 25 09/15/2024 CBC WITH DIFFE RENTI AL/PL ATELE T immature grans (abs) 0.0 x10e3 /uL 0.0-0. 1 Not Available [facility] ([facility]) [address] [place], [address], 09/18/2024 13:07:11 09/15/19 25 09/15/2024 THYRO ID ANTIB ODIES thyroid peroxidase (tpo) Ab 17 IU/mL 0-34 Not Available [facility] ([facility]) [address] [facility], [place], [address], 09/18/2024 13:07:12 09/15/19 25 09/15/2024 THYRO ID ANTIB ODIES thyroglobuli n antibody <1.0 IU/mL 0.0-0. 9 Thyro globu nikolas Antib bertrand measu red by Rashi Wongt er Metho dolog y It shoul d be noted that the prese nce of thyro globu nikolas antib odies may not be patho genic nor diagn ostic , espec ially at very low level s. The assay manuaz actur er has found that four perce nt of indiv idual s witho ut evide nce of thyro id disea se or autoi mmuni ty will have posit gloria TgAb level s up to 4 IU/mL . Not Available [facility] ([facility]) [address] [place], [address], 09/18/2024 13:07:12 09/15/19 25 09/16/2024 URINE CULTU RE, ROUTI NE urine culture, routine FINAL REPORT Not Available [facility] ([facility]) [address] [place], [address], 09/18/2024 13:07:12 09/15/19 25 09/16/2024 URINE CULTU RE, ROUTI NE result 1 COMMEN T Mixed uroge nital nacho Less than 10,00 0 colon ies/m L Not Available [facility] ([facility]) [address] [place], [address], 09/18/2024 13:07:12 09/15/19 25 09/15/2024 TRIIO DOTHY SANDER E (T3), FREE triiodothyro nine (T3), free 3.2 pg/mL 2.0-4. 4 Not Available [facility] ([facility]) [address] [place], [address], 09/18/2024 13:07:13 09/24/19 24 08/31/2023 US, thyro id No observ ation record ed. [facility] [address] [facility] [address], [place], [address], 09/26/2023 16:42:12 Result Notes None recorded. Problems Name Problem SNOMED Code Status Onset Date Resolution Date Notes Provider Name and Address Organization Details Recorded Time Hypothyroidism 95408601 Active 2023 ANGIE Madison Attn: Leonarda choi,[address] [facility], [place], [address], [facility] - [facility] 4 13:56:08 Seasonal allergic rhinitis 761258390 Active 2023 ANGIE Madison Attn: Leonarda choi,[address] [place], [address], [facility] - [facility] 4 13:56:10 Long-term drug therapy Active 2023 ANGIE Madison Attn: Leonarda choi,[address] [place], [address], [facility] - [facility] 4 13:56:11 Body mass index 25-29 - overweight 042937783 Active 2023 Phil Sandoval MA null, [place] - [place] 4 16:07:43 Overweight 396429167 Active 2023 ANGIE Madison Attn: Leonarda choi,[address] [place], [address], [facility] - [facility] 4 13:29:29 Overweight in adulthood with body mass index of 25 or more but less than 30 768186194 Active 2024 ANGIE Madison Attn: Leonarda choi,[address] [place], [address], [facility] - [facility] 5 23:14:43 Problem Notes None recorded. Procedures Surgical History Date Name Laterality Status Provider Name and Address Organization Details Recorded Time Knee Surgery completed Phil Sandoval MA [facility] 07/22/2023 16:48:39 Imaging Results None recorded. Procedure Notes None recorded. Medical Equipment None Reported. Allergies No known drug allergies Medications Name Sig Start Date Stop Date Status Note LastModified by Organization Details LastModified Time azithromyci n 250 mg tablet TAKE 2 TABLETS (500 MG) BY ORAL ROUTE ONCE DAILY FOR 1 DAY THEN 1 TABLET (250 MG) BY ORAL ROUTE ONCE DAILY FOR 4 DAYS 08/06 completed Not Available Not Available Not Available ofloxacin 0.3 % eye drops INSTILL 1 DROP INTO AFFECTED EYE FOUR TIMES DAILY FOR 5-7 DAYS 07/21 completed Not Available Not Available Not Available benzonatate 200 mg capsule Take 1 capsule 3 times a day by oral route. 08/06 completed Not Available Not Available Not Available Nystop 100,000 unit/gram topical powder APPLY TO AFFECTED AREA TOPICALLY TWICE DAILY 01/07 completed Not Available Not Available Not Available prednisone 20 mg tablet Take 2 tablets every day by oral route for 5 days. 08/06 completed Not Available Not Available Not Available metronidazo le 500 mg tablet 07/21 completed Not Available Not Available Not Available ciprofloxac in 500 mg tablet TAKE 1 TABLET BY MOUTH EVERY 12 HOURS 06/02 completed Not Available Not Available Not Available levothyroxi ne 100 mcg tablet 07/21 completed Not Available Not Available Not Available amoxicillin 875 mg tablet TAKE 1 TABLET BY MOUTH EVERY 12 HOURS 06/02 completed Not Available Not Available Not Available prednisolon e acetate 1 % eye drops,suspe nsion INSTILL 1 DROP IN BOTH EYES THREE TIMES DAILY FOR 7 DAYS FOR INFLAMMAT ION 07/21 completed Not Available Not Available Not Available benzonatate 100 mg capsule 06/02 completed Not Available Not Available Not Available erythromyci n 5 mg/gram (0.5 %) eye ointment APPLY A 1 CM RIBBON INTO THE RIGHT LOWER CONJUNCTI EDDIE SAC AND RIGHT UPPER EYELID MARGIN THREE TIMES DAILY active Not Available Not Available No t Available levothyroxi ne 125 mcg tablet 09/14 completed Not Available Not Available Not Available neomycin-po lymyxin-dex ameth 3.5 mg/mL-10,00 0 unit/mL-0.1 % eye drops INSTILL 1 DROP IN BOTH EYES FOUR TIMES DAILY FOR 7 DAYS 07/21 completed Not Available Not Available Not Available prednisone 50 mg tablet TAKE 1 TABLET BY MOUTH EVERY DAY FOR 5 DAYS 08/06 completed Not Available Not Available Not Available docusate sodium 100 mg capsule 07/21 completed Not Available Not Available Not Available betamethaso ne, augmented 0.05 % topical ointment APPLY TOPICALLY TO THE AFFECTED AREA OF FEET IN THE EVENING. DO NOT EXCEED 45 GM EVERY WEEK active Not Available Not Available No t Available montelukast 10 mg tablet TAKE 1 TABLET BY MOUTH EVERY DAY NEEDED active Not Available Not Available No t Available codeine 10 mg-guaifene sin 100 mg/5 mL oral liquid TAKE 10 ML BY MOUTH EVERY 6 HOURS NEEDED 07/21 completed Not Available Not Available Not Available mupirocin 2 % topical ointment APPLY A SMALL AMOUNT TO THE AFFECTED AREA OF EAR THREE TIMES DAILY 01/07 completed Not Available Not Available Not Available ibuprofen 600 mg tablet 07/21 completed Not Available Not Available Not Available estradiol 0.01% (0.1 mg/gram) vaginal cream USE 1 GRAM NIGHTLY FOR 14 NIGHTS. THEN USE 1G EVERY OTHER NIGHT FOR 7 NIGHTS. THEN USE 1G TWICE WEEKLY active Not Available Not Available No t Available methylpredn isolone 4 mg tablets in a dose pack FOLLOW PACKAGE DIRECTION S 09/20 completed Not Available Not Available Not Available labetalol 100 mg tablet 07/21 completed Not Available Not Available Not Available hydrocodone 10 mg-chlorphe niramine 8 mg/5 mL oral susp extend.rel 12hr TAKE 5ML BY MOUTH EVERY 12 HOURS NEEDED 01/07 completed Not Available Not Available Not Available albuterol sulfate HFA 90 mcg/actuati on aerosol inhaler INHALE 2 PUFFS BY MOUTH EVERY 6 TO 8 HOURS NEEDED active Not Available Not Available No t Available cefdinir 300 mg capsule TAKE 1 CAPSULE BY MOUTH EVERY 12 HOURS 09/20 completed Not Available Not Available Not Available fluticasone propionate 50 mcg/actuati on nasal spray,suspe nsion SHAKE LIQUID AND USE 2 SPRAYS IN EACH NOSTRIL EVERY DAY active Not Available Not Available No t Available levothyroxi ne 112 mcg tablet TAKE 1 TABLET BY MOUTH EVERY DAY active Not Available Not Available No t Available amoxicillin 875 mg-potassiu m clavulanate 125 mg tablet TAKE 1 TABLET BY MOUTH TWICE DAILY FOR 10 DAYS 06/02 completed Not Available Not Available Not Available FeroSul 325 mg (65 mg iron) tablet TAKE 1 TABLET BY MOUTH DAILY 07/21 completed Not Available Not Available Not Available budesonide 1 mg/2 mL suspension for nebulizatio n EMPTY ONE VIAL INTO IDS, ADD SALINE PACKET AND DISTILLED WATER, THEN IRRIGATE ONCE DAILY active Not Available Not Available No t Available Procto-Med HC 2.5 % topical cream perineal applicator 07/21 completed Not Available Not Available Not Available Vitals Date Recorded Body weight Body mass index (BMI) Body height Respiratory rate Oxygen saturation Oxygen saturation in Arterial blood by Pulse oximetry Heart rate Systolic And Diastolic Provider Name and Address Organization Details Last Updated DateTime 4 [address]017.7 1 g 26.2 kg/m2 157.48 cm 20 /min 99 % 99 % 88 /min 126/72 mm[Hg] Phil Sandoval MA [facility] 4 16:42:43 Date Recorded Respiratory rate Systolic And Diastolic Provider Name and Address Organization Details Last Updated DateTime 09/20/2024 18 /min 110/70 mm[Hg] ANGIE Madison Attn: Accounting,[address] [place], [address], [facility] 09/20/2024 16:38:56 Date Recorded Body height Body mass index (BMI) Body weight Heart rate Oxygen saturation Oxygen saturation in Arterial blood by Pulse oximetry Systolic And Diastolic Provider Name and Address Organization Details Last Updated DateTime 5 157.48 cm 25.1 kg/m2 14436.5 9 g 80 /min 98 % 98 % 108/70 mm[Hg] Yovanny Howard MA [facility] 5 16:05:36 Date Recorded Body height Body mass index (BMI) Body weight Respiratory rate Oxygen saturation Oxygen saturation in Arterial blood by Pulse oximetry Heart rate Systolic And Diastolic Provider Name and Address Organization Details Last Updated DateTime 4 157.48 cm 25.6 kg/m2 29521.9 3 g 20 /min 100 % 100 % 88 /min 126/80 mm[Hg] Phil Sandoval MA [facility] 4 16:09:15 Date Recorded Body height Body mass index (BMI) Body weight Respiratory rate Oxygen saturation Oxygen saturation in Arterial blood by Pulse oximetry Heart rate Systolic And Diastolic Provider Name and Address Organization Details Last Updated DateTime 4 157.48 cm 26.5 kg/m2 75259.8 9 g 20 /min 97 % 97 % 90 /min 122/82 mm[Hg] Phil Sandoval [place] [facility] 14:01:12 Social History Question Answer Notes LastModified by Organizat ion Details LastModified Time Tobacco Smoking Status Never Smoker Phil Sandoval [place] null, [place] [facility] 07/22/2023 16:40:00 Do You Have An Advance Directive? No Information n ot available 07/22/2023 Are You Blind Or Do You Have Difficulty Seeing? No Glasses Information n ot available 07/22/2023 What Is Your Level Of Caffeine Consumption? Heavy Information not available 09/20/2024 In The 14 Days Before Symptom Onset, Have You Had Close Contact With A Laboratory-confirm ed COVID-19 While That Case Was Ill? No Information n ot available 07/22/2023 In The 14 Days Before Symptom Onset, Have You Had Close Contact With A Person Who Is Under Investigation For COVID-19 While That Person Was Ill? No Information not available 07/22/2023 Have You Been To An Area Known To Be High Risk For COVID-19? No Information not available 07/22/2023 Are You Deaf Or Do You Have Serious Difficulty Hearing? No Information not available 07/22/2023 What Type Of Diet Are You Following? REGULAR Information n ot available 07/22/2023 Are There Any Guns Present In Your Home? No Information not available 07/22/2023 What Was The Date Of Your Most Recent Tobacco Screening? 09/20/2024 Information not available 09/20/2024 What Is Your Relationship Status? Information not available 07/22/2023 Do You Use Your Seat Belt Or Car Seat Routinely? Yes Information not available 07/22/2023 Do You Have Smoke And Carbon Monoxide Detectors In Your Home? Yes Information not available 07/22/2023 Do You Use Sunscreen Routinely? Yes Information not available 07/22/2023 Has Tobacco Cessation Counseling Been Provided? Yes Information not available 07/22/2023 On What Date Was Tobacco Cessation Counseling Provided? 09/20/2024 Information not available 09/20/2024 Sex: Female Functional Status Question Answer Note LastModified by Organizat ion Details LastModified Time Do you use any illicit or recreational drugs? No Information not available 07/22/2023 Do you or have you ever used any other forms of tobacco or nicotine? No Information not available 07/22/2023 What is your level of alcohol consumption? Occasional Information not available 09/20/2024 Are you currently employed? Yes Information not available 07/22/2023 Are you able to care for yourself independently? 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 Occasional Information not available 07/22/2023 Mental Status Question Answer Note LastModified by Organization D etails LastModified Time Do you feel stressed (tense, restless, nervous, or anxious, or unable to sleep at night)? [id number] Information not available 09/20/2024 Family History Relationship Description Onset Age of this Age Resolved Age Notes LastModified by Organization Details LastModified Time Mother Disorder of thyroid gland [email or web address] Not available 2023 16:49:08 Father Hypertensive disorder [email or web address] Not available 2023 16:49:13 Medical History Condition Response Coronary Artery Disease N Other N Atrial Fibrillation N High Blood Pressure N Thyroid Problems Y Kidney or Bladder Problems N Depression N COPD N Blood Clots N GI Problems N Skin Problems N Anemia N Heart Attack (NH) N Diabetes N Anxiety Disorder N Muscle, Joint, or Bone Problems N Seizures/Epilepsy N Acid Reflux (GERD) N Cancer N Stroke N Allergies Y Asthma N High Cholesterol N Hepatitis N Liver Disease N Headaches N Osteoporosis N Heart Failure N Gynecological History Statement/Question Response Flow Heavy Date of LMP 01/06/2024 Frequency of Cycle (Q days) 28 Menses Monthly Y Duration of Flow (days) 4 Current Control Method None LMP Definite Obstetrics History GPAL:G 3 P 1 0 0 1 Type Value Full Term 1 Induced 0 Spontaneous 0 Premature 0 Living 1 Total 3 Immunizations Vaccine Type Date Status Note Provider Nam e and Address Organization Details Recorded Time COVID-19, mRNA, LNP-S, PF, 100 mcg/0.5mL dose or 50 mcg/0.25mL dose 05/19/2020 completed BRODERICK [place], [place] - [facility] 03/15/2024 13:59:59 COVID-19, mRNA, LNP-S, PF, 100 mcg/0.5mL dose or 50 mcg/0.25mL dose 06/16/2020 completed BRODERICK [place] [facility] 03/15/2024 13:59:59 COVID-19, mRNA, LNP-S, PF, 100 mcg/0.5mL dose or 50 mcg/0.25mL dose 02/28/2021 completed BRODERICK [place] [facility] 03/15/2024 13:59:59 COVID-19, mRNA, LNP-S, PF, andre-sucrose, 30 mcg/0.3 mL 05/18/2023 completed BRODERICK [place] [facility] 03/15/2024 13:59:59 COVID-19, mRNA, LNP-S, PF, andre-sucrose, 30 mcg/0.3 mL 02/07/2024 completed BRODERICK [place] [facility] 03/15/2024 13:59:59 Tdap 03/13/2022 completed BR[place] [facility] 03/15/2024 13:59:59 Influenza, split virus, quadrivalent, PF 05/18/2023 completed BRODERICK [place] [facility] 03/15/2024 13:59:59 Influenza, split virus, quadrivalent, PF 01/14/2022 completed [place] [facility] 03/15/2024 13:59:59 Influenza, split virus, quadrivalent, PF 02/28/2021 [place] [facility] 03/15/2024 13:59:59 Influenza, MDCK, trivalent, PF 02/07/2024 completed [place] [facility] 03/15/2024 13:59:59 Past Encounters Encounter ID Performer Location Encounter Start Date Encounter Closed Date Diagnosis/Indication Diagnosis SNOMED-CT Code Diagnosis ICD10 Code Diagnosis IMO Codes Diagnosis Note [id number] Calvin Samuels MD [facility] [employer] [address] [place] [phone] 1 07/22/2023 16:22:11 07/30/2023 10:00:35 Hypothyroidism 56829541 E03.9 due for full thyroid panel plus abs. check updated thyroid u/s. Seasonal a llergic rhinitis 676330371 J30.2 RX for tussionex cough syrup to dry up secretions and post nasal cough. RX for flonase NS Long-term drug therapy 027801675 Z79.899 cmp, cbc and b12, folate labs are due with ua Cholesterol screening 27 7344442 Z13.220 fasting lipids due. Diabetes m ellitus screening 835118583 Z13.1 screening a1c due Acute maxi llary sinusitis 02451963 J01.00 start zpack therapy. Tinea pedis 0788357 B35. 3 trial of nystatin powder Rx for athletes foot [id number] Calvin Samuels MD [facility] [employer] [address] [place] [id number] 1 01/08/2024 15:46:15 01/11/2024 14:35:43 Overweight 145589467 E66.3 Body mass index 25-29 - overweight 625247345 Z68.25 Cough 35461890 R05.9 No signs of infection just residual cough. Start Tessalon Perles 200 mg 3 times daily for residual cough Congestion of nasal sinus 67104309 R09.81 Over-the-c ounter decongesta nt antihistam ine and nasal steroid spray suggested [id number] Calvin Samuels MD [facility] [employer] [address] [place] [id number] 1 03/15/2024 13:50:16 03/15/2024 14:30:58 Cough 94517218 R05.9 Patient has Tessalon Perles; supportive care no antibiotic still available and should use over-the-c ounter Delsym cough syrup. Viral syndrome 372083156 B34.9 Supportive care Decreased breath sounds 26640468 R09.89 Refill on albuterol [id number] Calvin Samuels MD [facility] [address] [place] [address] 09/20/2024 15:55:59 09/23/2024 11:09:46 Overweight in adulthood with body mass index of 25 or more but less than 30 783138147 E66.3 Z68.25 8901591009 BMI 25.1 Adult [facility] examination 498634671 Z00.00 [id number] Annual wellness exam completed Hypothyroidism 75296166 E03.9 Continue levothyrox ine 112 mcg daily. Labs are stable Long-term drug therapy 741144444 Z79.899 All labs reviewed Health Concerns Section Related Observation LastModified by Organization Detai ls LastModified Time None Recorded Concern Status LastModified by Organization Details LastModified Time None Recorded Advance Directives Directive N: Payers Insurance Date Sequence Insurance Name Policy Number Policy Gonzales Covered Member ID Gonzales Member ID Guarantor Name 02/03/2025 1 [facility] [id number] Pa Menchaca [id number] Pa Menchaca Notes Date Note Type Note Provider Name and Address Organization Details Recorded Time 07/22/19 24 text/htm l Sinusitis/AllergyReported by PatientHPIFor associated symptoms, patient reportsfacial pain __,sinus pain __,nasal discharge, andear fullness. For quality, patient reportsworsening,dull,congeste d, andcolored phlegm. For context, patient reportsrecent upper respiratory infection,worse with seasonal allergen exposure, andworse with environmental exposure. For alleviating factors, patient reportsno relief with antibiotics. For location, patient reportsmaxillaryandfrontal. For onset/timing, patient reportsrecurring. For duration, patient reportshad 3 sinus infections treated with antibiotics in the last year. For risk factors, patient reportsno current smoking or tobacco use. For aggravating factors, patient reportsworse during an upper respiratory infection (a cold). For prior opinion, patient reportspcp., Pt. states that she has been having a cough/ congestion states that the congestion has been going on for about 1 month and the cough and about a week ThyroidReported by Patientstable on thyroid supplement. due for labs. C/o athletes foot bilat. ANGIE Madison Attn: Accounting,[address] [facility], [place], [address], [facility] 07/29/2023 13:56:25 01/08/20 24 text/htm l Upper Respiratory SymptomsReported by PatientUpper Respiratory SymptomsFor quality, patient reportsproductive cough. 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 For associated symptoms, patient reportsyellow sputumandmorning cough. For location, patient reportsheadandchest. For severity, patient reportsmoderate. For modifying factors, patient reportsotc medication. For duration, (ten days onset). ANGIE Madison Attn: Accounting,[address] [facility], [place], [address], [facility] 2024 13:30:21 03/15/20 24 text/htm l Upper Respiratory SymptomsReported by PatientUpper Respiratory SymptomsFor quality, patient reportsproductive cough. 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 For associated symptoms, patient reportsyellow sputumandmorning cough. For location, patient reportsheadandchest. For severity, patient reportsmoderate. For modifying factors, patient reportsotc medication. For duration, (ten days onset).States that she has some chest congestion/ no nasal drip or nasal congestion, some coughing states that it sometimes causes vomiting states that she has noticed some chets pains last night/ states that she has no wheezingand a productive cough/ lost her voice last thursday/ cough started yesterday ANGIE Madison Attn: Accounting,[address] [facility], [place], [address], [facility] 03/29/2024 12:38:28 09/21/19 25 text/htm l ThyroidReported by PatientStable on levothyroxine 112 mcg daily up-to-date on labs which are all normal. Patient here for her annual wellness exam. Patient does have underlying seasonal allergies which are often more constant allergies on and off throughout the year. She does take Flonase nasal spray and oldi-mxd-gpyuyhv antihistamine ANGIE Madison Attn: Accounting,[address] [place], [address], [facility] 09/22/2024 23:15:11 OBGyn Episode No OBEpisode recorded.
--- OUTSIDE RECORDS SUMMARY | 2025-02-05 17:03 | XMS_ITS | Encounter Summary ---
Author Organization [facility] Address [address] [place] [address] Care Team Providers Care Mental Health Tech Name Role Phone Letty Garcia Primary Care Provider [phone] Encounter Details Date Type Department Care Team ([facility] st Contact Info) Description 12/05/2024 Results Follow-Up [facility] [address] [place] [address] Angelita Ely NP [address] [place] [id number] MAMMO 3D HUSAM SCREEN BILAT W OR WO CAD Social History Tobacco Use Types Packs/Day Years Used Date Smoking Tobacco: Never Smokeless Tobacco: Never Alcohol Use Standard Drinks/Week Comments Yes 0 (1 standard drink = 0.6 oz pur e alcohol) some Feeling Safe Answer Date Recorded Are you in a relationship wi th someone who hurts you emotionally and/or physically? Unable to obtain 04/11/2023 Comments No Sex and Gender Information Value Date Recorded Sex Assigned at Not on file Legal Sex Female 11:15 AM CDT Gender Identity Not on file Sexual Orientation Not on file documented as of this encounter Plan of Treatment Not on file documented as of this encounter Visit Diagnoses Not on filedocumented in this encounter Care Teams Mental Health Tech Relationship Specialty Start Date End Date Letty Garcia PA PCP - General 10/19/20 documented as of this encounter
--- OUTSIDE RECORDS SUMMARY | 2025-02-05 17:03 | XMS_ITS | Clinical Summary ---
Author Organization [facility] [address] [place] [address] [place] [address] Care Team Providers Care Daily Release And Dupe Printer Name Role Phone Letty Garcia Primary Care Provider [phone] Allergies No known active allergies Medications vit,sonali 74/iron/folic ( VITAMIN 1+1 ORAL) Take by mouth. Activ e fluticasone propionate (FLONASE) 50 mcg/spray [place], Suspension nasal inhaler Administer 2 Sprays in each nostril daily. Active montelukast (SINGULAIR) 10 mg tablet Take 10 mg by mouth daily at bedtime. Active acetaminophen (TYLENOL) 500 mg tablet Take 2 Tablets (1,000 mg) by mouth every 8 hours. 3 Active levothyroxine 112 mcg tablet Take 1 Tablet by mouth daily. 5 Active erythromycin (ILOTYCIN) 5 mg/gram (0.5 %) ointment APPLY A 1 CM RIBBON INTO THE RIGHT LOWER CONJUNCTIVAL SAC AND RIGHT UPPER EYELID MARGIN THREE TIMES DAILY 5 Active Fluticasone Furoate (FLONASE SENSIMIST) 27.5 mcg/actuation [place], Suspension Administer 2 Sprays in each nostril daily. Active estradioL (Estrace) 0.01% (0.1 mg/g) vaginal cream Use 1g nightly for 14 nights. Then use 1g every other night for 7 nights. Then use 1g twice weekly. 42.5 Gram 3 5 Active Active Problems Problem Noted Date Diagnosed Date Acquired hypothyroidism 11/01/2024 Resolved Problems Problem Noted Date Diagnosed Date Resolved Date Threatened in early 04/11/2023 11/01/2024 Amniotic fluid leaking 06/11/202207/223 Normal labor 06/11/2022 07/22/2022 Encounters Date Type Department Care Team Description 01/31/2025 External Device Data ST[facility] ABSTRACTION Provider, Abstract 01/25/2025 External Device Data [facility] ABSTRACTION Provider, Abstract 01/25/2025 External Device Data [facility] ABSTRACTION Provider, Abstract 01/18/2025 External Device Data ST[facility] ABSTRACTION Provider, Abstract 12/22/2024 10:00 AM CDT - 12/22/2024 11:59 PM CDT Hospital Encounter [facility] [address] [place] [phone] Angelita Ely, TRUSS MAKER Discharge Disposition: Home or Self Care 12/14/2024 External Device Data ST[facility] ABSTRACTION Provider, Abstract 12/13/2024 External Device Data ST[facility] ABSTRACTION Provider, Abstract 12/05/2024 Results Follow-Up [facility] [address] [facility] [facility] [address] [place] [address] Angelita Ely, TRUSS MAKER MAMMO 3D HUSAM SCREEN BILAT W OR WO CAD 12/03/2024 8:55 AM CDT - 12/03/2024 11:59 PM CDT Hospital Encounter [facility] [address] [place] [phone] Angelita Ely, TRUSS MAKER Discharge Disposition: Home or Self Care 11/15/2024 External Device Data STL ABSTRACTION Provider, Abstract 11/08/2024 External Device Data STL ABSTRACTION Provider, Abstract 11/08/2024 External Device Data STL ABSTRACTION Provider, Abstract from Last 3 Months Immunizations Immunization Administration Dates Next Due (ADACEL/BOOSTRIX)(10 YR UP) TDAP VACCINE, 0.5ML, IM 03/13/2022 (M-M-R II/PRIORIX)(12 MO UP) MEASLES, MUMPS AND RUBELLA VIRUS VACCINE, 0.5 ML IM/SUBCUT 06/13/2022(Deferred: - patient wants in ob office) INFLUENZA VACCINE QUADRIVALE NT 6 MOS UP PF IM 01/14/2022 Family History Medical History Relation Name Comments Hypertension Father Aunt Other Father Aunt Rheumatoid Arth ritis Other Mother Kasia Rheumatoid Arth ritis Thyroid Disease Mother Kasia Breast Cancer Paternal Aunt No Known Problems Sister 1 No Known Problems Sister 2 Half Colon Cancer Neg Hx Relation Name Status Comments Father Aunt Alive Mother Kasia Alive Paternal Aunt Sister 1 Alive Sister 2 Half Alive Social History Tobacco Use Types Packs/Day Years Used Date Smoking Tobacco: Never Smokeless Tobacco: Never Tobacco Cessation:Counseling Given: Not Answered Alcohol Use Standard Drinks/Week Comments Yes 0 [...] on file Sexual Orientation Not on file Last Filed Vital Signs Vital Sign Reading Time Taken Comments Blood Pressure 118/68 11/01/2024 8:38 AM CDT Pulse 73 04/11/2023 6:40 PM HANDLING TECH Temperature 36.8 C (98.2 F) 04/11/2023 6:40 PM HANDLING TECH Respiratory Rate 18 04/11/2023 6:40 PM HANDLING TECH Oxygen Saturation 100% 04/11/2023 6:40 PM HANDLING TECH Inhaled Oxygen Concentration - - Weight 65.7 kg (144 lb 12.8 oz) 11/01/2024 8:38 AM CDT Height 157.5 cm (5' 2) 11/01/2024 8:38 AM CDT Body Mass Index 26.48 11/01/2024 8:38 AM CDT Plan of Treatment Health Maintenance Due Date Last Done Comments Pre-Diabetes and Diabetes Screening 1983 HEPATITIS B VACCINES (1 of 3 - 19+ 3-dose series) 2002 HPV VACCINES (1 - 3-dose SCDM series) 2010 INFLUENZA VACCINE (#1) 2024 01/14/2022, 2020 BREAST CANCER SCREENING 12/22/2025 12/22/2024, 12/03 PAP SMEAR 04/06/2026 04/06/2023 CERVICAL CANCER SCREENING 04/06/2028 HPV/Cotest (21-29) 04/06/2028 04/06/2023 HPV/Cotest (30-65) 04/06/2028 04/06/2023 DTAP/TDAP/TD VACCINES (2 - Td or Tdap) 03/13/2032 Procedures Procedure Name Priority Date/Time Associated Diagnosis Comments MAMMO DIAG UNI LEFT 3D HUSAM W OR WO CAD Routine 12/22/2024 10:20 AM CDT Abnormal mammogram MAMMO 3D HUSAM SCREEN BILAT W OR WO CAD Routine 12/03/2024 9:14 AM CDT Breast cancer screening by mammogram CERV/VAG CYTO AGE BASED SCREEN PAP Routine 04/06/2023 4:18 PM HANDLING TECH Screening for cervical cancer Well woman exam with routine gynecological exam from Last 3 Months or Most Recently Relevant to Health Maintenance Results * MAMMO 3D HUSAM DIAGNOSTIC UNI LT W OR WO CAD (12/22/2024 10:20 AM CDT) Anatomical Region Laterality Modality Breast Left Mammography 12/22/2024 10:2 0 AM CDT Impressions 12/22/2024 10:26 AM CDT IMPRESSION: No mammographic evidence of malignancy. OVERALL FINAL ASSESSMENT: BI-RADS CATEGORY 1: Negative. RECOMMENDATIONS: Annual screening The above findings should be correlated with physical examination and further evaluation performed as warranted. An [employer] certified facility. DICTATION LOCATION: [facility] Narrative 12/22/2024 10:26 AM CDT MAMMOGRAPHY UNILATERAL DIGITAL DIAGNOSTIC LEFT WITH CAD WITH TOMOSYNTHESIS DATE: 12/22/2024 10:20 AM Prior: December 03, 2024 INDICATIONS: Asymmetry central left breast middle depth MLO view TECHNIQUE: Additional views left breast with CAD correlation. BREAST COMPOSITION: The breasts are heterogeneously dense, which may obscure small masses. FINDINGS: The previously seen asymmetry effaces with additional views. Angelita Ely NP MAMMO ORDERABLES Final Result * MAMMO 3D HUSAM SCREEN BILAT W OR WO CAD (12/03/2024 9:14 AM CDT) Anatomical Region Laterality Modality Breast Bilateral Mammography 12/03/2024 9:14 AM CDT Impressions 12/05/2024 7:50 AM CDT IMPRESSION: Left breast asymmetry. RECOMMENDATIONS: Left breast diagnostic mammogram with spot compression and possible ultrasound. DICTATION LOCATION: [facility] Narrative 12/05/2024 7:50 AM CDT MAMMO 3D HUSAM SCREEN BILAT W OR WO CAD DATE: 12/03/2024 9:14 AM HISTORY: Routine screening. TECHNIQUE: Full-field digital craniocaudal and mediolateral oblique projections of both breasts were obtained. Low-dose full-field digital breast tomosynthesis examination was performed with 3D acquisitions. Examination is read in conjunction with computer aided detection. COMPARISON: None, baseline. BREAST COMPOSITION: The breasts are heterogeneously dense, which may obscure small masses. FINDINGS: There is an asymmetry in the central left breast middle depth on the mediolateral oblique view. There is no suspicious abnormality in the right breast. OVERALL FINAL ASSESSMENT: BI-RADS CATEGORY 0: Incomplete, need additional imaging evaluation. Angelita Ely NP MAMMO ORDERABLES Final Result * CERV/VAG CYTO AGE BASED SCREEN PAP (04/06/2023 4:18 PM HANDLING TECH) COMMENT (PAP): [facility] Comment: This order for age-based cervical cancer and STI screening follows ACOG guidelines(PB 168, 140, PTN966). See individual assays for performing site location. CLINICAL INFORMATION [facility] Comment:None given LAST MENSTRUAL PERIOD [facility] Comment:03/04/2023 PREV PAP: [facility] Comment:NONE GIVEN PREV BX: [facility] Comment:NONE GIVEN SOURCE [facility] Comment:Endocervix ADEQUACY: [facility] Comment: Satisfactory for evaluation. Endocervical/transformation zone component present. PAP INTERP [facility] Comment: Cytology Results: Negative for intraepithelial lesion or malignancy. COMMENT (PAP TEST) [facility] [place] Comment: This case could not be evaluated with computer assisted technology. The slide was manually screened according to routine procedures. PHARMACY PICKING TECHNICIAN: [facility] [place] Comment: BES, CT(ASCP) CT screening location: [place] [address] [address] [place]ILANGO [place] [address] EXPLANATORY NOTE [facility] [place] Comment: EXPLANATORY NOTE: The Pap is a screening test for cervical cancer. It is not a diagnostic test and is subject to false negative and false positive results. It is most reliable when a satisfactory sample, regularly obtained, is submitted with relevant clinical findings and history, and when the Pap result is evaluated along with historic and current clinical information. HPV E6/E7 Not Detected Not Detected [facility] [place] Comment: Methodology: Research Associate Professor-Mediated Amplification This assay detects E6/E7 viral messenger RNA (mRNA) from 14 high-risk HPV types (16,18,31,33,35,39,45,51,52,56,58,59,66,68). Cervical sources are required for HPV testing. If a vaginal source from a patient who has had a total hysterectomy with removal of cervix was submitted, please contact the testing laboratory for alternative testing options. For additional information, please refer to http://education.RB-Doors/faq/HAM272k3 (This link if provided for information/ educational purposes only.) Test Performed at: [facility] [address] [place] [address] Aida BUCK Genital SWAB OF ENDOCERVIX / Unknown 04/06/2023 4:18 PM HANDLING TECH 04/07/2023 12:09 AM HANDLING TECH Katt Johnson MD PATHOLOGY/CYTOLOGY ORDERABLES Fi nal Result [facility] [phone] [facility] [employer] [address] [place] [address] from Last 3 Months or Most Recently Relevant to Health Maintenance Insurance [facility] [id number] [employer] Advance Directives For more information, please contact: [phone] * Full Code (Latest Code Status on File) Date Activated Date Inactivated Comments 04/11/2023 6:22 PM 04/11/2023 10:44 PM * Full Code Date Activated Date Inactivated Comments 06/11/2022 10:48 PM 06/13/2022 4:43 PM * Full Code Date Activated Date Inactivated Comments 06/11/2022 1:11 AM 06/11/2022 10:48 PM Care Teams Daily Release And Dupe Printer Relationship Specialty Start Date End Date Letty Garcia PA PCP - General 10/19/20
--- OUTSIDE RECORDS SUMMARY | 2025-02-05 17:03 | XMS_ITS | Clinical Summary ---
Author Organization [facility] [place] [address] [place] [phone] Care Team Providers Care Air Traffic Coordinator Name Role Phone Letty Garcia Primary Care Pr ovider Allergies No known active allergies Medications levothyroxine (SYNTHROID) 25 mcg tablet Take 1 tablet (25 mcg total) by mouth top lift trimmer before breakfast Active montelukast (SINGULAIR) 4 mg chewable tablet Take 1 tablet (4 mg total) by mouth nightly Active fluticasone (VERAMYST) 27.5 mcg/actuation nasal sprayIndication s:Allergic Rhinitis Administer 2 sprays into each nostril daily Active Active Problems Problem Noted Date Diagnosed Date Left anterior cruciate ligament tear 01/17/2025 Encounters Date Type Department Care Team Description 02/05/2025 4:30 PM FINAL ARMATURE TESTER Office Visit [facility] at [address] [phone] Mica Chun NP Acute nonintractable headache, unspecified headache type (Primary Dx) 01/18/[address] [facility] Sports [facility] [address] [place] [address] [address] [phone] Edward Doyle MD Rupture of anterior cruciate ligament of left knee, initial encounter (Primary Dx) 12/30/2024 Telephone [facility] [address] [place] [address] [address] [place] [phone] Edward Doyle MD 12/30/[address] [facility] [address] [place] [address] Edward Doyle MD FMLA/Disability Paperwork 12/14/[address] [facility] [address] [facility] [address] [place] [address] Edward Doyle MD from Last 3 Months Social History Tobacco Use Types Packs/Day Years Used Date Smoking Tobacco: Never Smokeless Tobacco: Never Tobacco Cessation:Counseling Given: Not Answered Alcohol Use Standard Drinks/Week Comments Never 0 [...] on file Legal Sex Female 12:38 AM FINAL ARMATURE TESTER Gender Identity Female 09/27/2024 6:32 AM CDT Sexual Orientation Straight 09/27/2024 6: 32 AM CDT Last Filed Vital Signs Vital Sign Reading Time Taken Comments Blood Pressure 132/84 02/05/2025 4:26 PM FINAL ARMATURE TESTER Pulse 88 02/05/2025 4:26 PM FINAL ARMATURE TESTER Temperature 36.7 C (98 F) 02/05/2025 4:26 PM FINAL ARMATURE TESTER Respiratory Rate 16 06/20/2023 11:00 AM CDT Oxygen Saturation 100% 02/05/2025 4:26 PM FINAL ARMATURE TESTER Inhaled Oxygen Concentration - - Weight 64.2 kg (141 lb 9.6 oz) 02/05/2025 4:26 P M FINAL ARMATURE TESTER Height 157.5 cm (5' 2.01) 06/10/2024 3:02 PM CD T Body Mass Index 25.89 06/10/2024 3:02 PM CDT Plan of Treatment Upcoming Encounters Date Type Department Care Team (Latest Contact Info) Description 02/09/2025 9:45 AM FINAL ARMATURE TESTER Hospital Encounter [facility] [address] [place] [address] Edward Doyle MD [address] [facility] [address] KARLA Doty [facility] [address] [place] [address] 02/09/2025 9:45 AM FINAL ARMATURE TESTER - 02/09/2025 12:15 PM FINAL ARMATURE TESTER Surgery [facility] [address] [place] [address] Edward Doyle MD [address] [facility] [address] KARLA Doty [facility] [address] [place] [address] Left knee arthroscopy, anterior cruciate ligament reconstruction--Art hroscopy equipment, Arthrex ACL tightrope, Arthrex extendo button back up, Arthrex enrobing machine corder, meniscal repairs systems cart on hold, Arthrex graft board, c-arm, graftlink, Arthrex size 10 x 65-70, NMES and cooling unit Scheduled Procedures Name Priority Associated Diagnoses Date/Ti me ARTHROSCOPY KNEE - REPAIR/AUGMENTATION OR RECONSTRUCTION ANTERIOR CRUCIATE LIGAMENT Rupture of anterior cruciate ligament of left knee, initial encounter 02/09/2025 9:45 AM FINAL ARMATURE TESTER Health Maintenance Due Date Last Done Comments Cervical Cancer Screening 1983 Depression Screening 1983 Hepatitis C Screening 1983 Varicella Vaccines (1 of 2 - 13+ 2-dose series) 01/31/1996 Hepatitis B Screening 2001 Regular Well Visit/Exam 18-64 2001 HPV Vaccines (1 - 3-dose SCDM series) 2010 Covid-19 Vaccine ( season) 2024 05/18/2023, 02/28/2021, 06/16/2020, Additional history exists Influenza Vaccine (#1) 2024 , 05/18/2023, 01/14/2022, Additional history exists Breast Cancer Screening-Mammogram 12/03/2025 12/03/2024, 12/03/2024 DTaP/Tdap/Td Vaccine (2 - Td or Tdap) 03/13/2032 03/13/2022 Pneumococcal vaccine <65 Aged Out No longer eligible based on patient's age to complete this topic Insurance [facility] CHOICE [employer]US [facility] HMO/PPO Address: [place] [address] Care Teams Air Traffic Coordinator Relationship Specialty Start Date End Date Letty Garcia PA PCP - General Physician Non Licensed Nuclear Equipment Operator 05/22/23
--- NOTE | 2025-02-05 17:29 | ED_ITS ---
HPI - Headache General Chief Complaint: Headache Stated Complaint: headache for 6 days Time Seen by Provider: 02/05/25 17:19 Source: patient Mode of arrival: ambulatory Limitations: no limitations History of Present Illness HPI Narrative: This is a 40 year old female that presents to the ER for a migraine headache. Ongoing over the last 6 days. Reports some relief with over the counter medications. Reports nausea, photophobia. Denies fevers. Related Data Home Medications ?Medication ?Instructions ?Recorded ?Confirmed ?Last Taken ?Type ciprofloxacin HCl 500 mg tablet 500 mg PO BID 02/14/23 02/14/23 Unknown History levothyroxine 100 mcg tablet 100 mcg PO DAILY 02/14/23 02/14/23 Unknown History montelukast 10 mg tablet 10 mg PO DAILY 02/14/2301/28 Unknown History Allergies Allergy/AdvReac Type Severity Reaction Status Date / Time No Known Allergies Allergy Verified 02/05/25 17:05 Review of Systems Review of Systems: All systems reviewed & are unremarkable except as noted in HPI and below PMFSH Past Medical History Medical History History of hypothyroidism Family History Family History Other Acute myocardial infarction Diabetes mellitus Family history of alcoholism Social History Social History Gender identity (if verbalized by the patient): Female Exam Narrative: GENERAL: Well-appearing, well-nourished, and in no acute distress. HEAD: Normocephalic, atraumatic. EYES: PERRLA and EOMI. ENT: Nares clear, no rhinorrhea or epistaxis. Mucous membranes moist. Oropharynx without tonsillar hypertrophy exudate or other lesions. Bilateral TMs pearly sepulveda non-bulging NECK: Supple. No adenopathy or masses. CHEST: Clear to auscultation. No respiratory distress. No wheezes rales or rhonchi HEART: Regular rate and rhythm. No murmur heard. Normal peripheral pulses. EXTREMITIES: Normal range of motion. No edema. SKIN: Warm, dry, no rash. NEURO: No focal deficits. Alert and oriented x3. CN II-XII grossly intact PSYCH: Normal mood and affect Course Vital Signs Vital signs: Vital Signs Temperature 98 F 02/05/25 17:03 Pulse Rate 90 02/05/25 17:03 Respiratory Rate 18 02/05/25 17:03 Blood Pressure 138/84 02/05/25 17:03 Pulse Oximetry 98 02/05/25 17:03 Oxygen Delivery Room Air 02/05/25 17:03 Temperature 98.5 F 02/05/25 19:17 Pulse Rate 85 02/05/25 19:17 Respiratory Rate 18 02/05/25 19:17 Blood Pressure 102/69 02/05/25 19:17 Pulse Oximetry 98 02/05/25 19:17 Oxygen Delivery Room Air 02/05/25 17:03 MDM - Headache MDM Narrative Medical decision making narrative: Patient presents to the ER for a headache. Ongoing over the last week. She is afebrile and nontoxic appearing. Her vitals are stable. She is neurologically intact. CT brain without acute findings. Patient with relief with migraine cocktail. She is to follow up with PCP. She was given warnings to return to [facility] ER Differential Diagnosis Differential diagnosis: Likely migraine, tension headache, subarachnoid hemorrhage, headache and sinusitis Imaging Data Radiologist's impression: ITS Impressions Head CT 02/05/25 18:15 Impression: 1.No acute intracranial abnormality. Critical Care Time Critical Care Time Critical Care Time: No Discharge Plan Discharge Clinical Impression: Headache Qualifiers: Headache type: unspecified Headache chronicity pattern: acute headache Intractability: not intractable Qualified Code(s): R51.9 - Headache, unspecified Patient Disposition: Home Condition: Improved Instructions: Acute Headache (ED) Additional Instructions: Return to the emergency department if you experience fever, stiff neck, vomiting, weakness, numbness, or any other symptoms that are concerning to you. Rest. Remain well hydrated. Tylenol or ibuprofen as needed for pain. Reglan as needed for nausea Follow up with your primary care doctor Patient Language: Yoruba Prescriptions: New metoclopramide HCl 5 mg tablet 5 mg PO Q6H Qty: 10 0RF No Action levothyroxine 100 mcg tablet 100 mcg PO DAILY montelukast 10 mg tablet 10 mg PO DAILY ciprofloxacin HCl 500 mg tablet 500 mg PO BID Follow-up/Referrals: Jose,CUCA Saenz [Primary Care Provider, Unknown]
[2025-02-05] MEDS: SODIUM CHLORIDE 0.9% IV 1,000 ML 999 ML IV CONT (17:30)
[2025-02-05] MEDS: METOCLOPRAMIDE HCL INJ 10 MG/2 ML VIAL IV PUSH (17:32)
[2025-02-05] MEDS: ACETAMINOPHEN 500 MG TABLET 1000 MG PO (17:32)
[2025-02-05] MEDS: dexAMETHasone SOD PHOS INJ 10 MG/ML 1 ML VIAL 4 MG IV PUSH (17:40)
[2025-02-05 19:17] VITALS: BP 102/69; PULSE 85; RESP 18; TEMP 36.9; O2SAT 98
--- NOTE | 2025-02-05 19:18 | PC.NURSE ---
Received report from KEIRA Rutledge for cont. of care. Pt AOx4 lying on stretcher, respirations even and unlabored. Pt denies any pain and/or discomfort at this time.
[2025-02-05 19:56] VITALS: BP 105/72; PULSE 82; RESP 16; TEMP 36.6; O2SAT 97
== END 2025-02-05 19:58 | disposition home or self-care (01) ==
PROVIDERS: Emergency Provider Physician Assistant; PCP Physician Assistant
DX: R51.9 Headache, unspecified (principal); E03.9 Hypothyroidism, unspecified
CPT/HCPCS: 70450; 96361; 96374; 96375; 99284; A9270; J1100; J1200; J2765; J7030